=== PATIENT | female | born 1970 | race Caucasian/White ===

== ENCOUNTER 2024-02-18 01:23 | Day surgery (SDC) | payer OTHER, SELFPAY ==
[2024-02-11 13:14] VITALS: BMI 34.3
--- NOTE | 2024-02-11 13:21 | SUR.PREOP ---
Report to the Outpatient Waiting Room, entrance under the green pavilion located off [facility], at time 0915 on date 02/18/24 Planned Procedure Time: 1115.? Time changes happen often and if your time is changed the preop area will call you the afternoon before. - You and your visitor will be asked to self-screen and do not enter if you have any COVID symptoms. Please call surgeon if you need to reschedule. - A mask is optional within the hospital at this time. Patients may have clear liquids (water, carbonated beverages, clear teas, apple juice) until 3 hours prior to surgery with a maximum of 20 ounces. - No food from midnight until time of surgery and no smoking - Infants may have breast milk until 4 hours before surgery, formula 6 hours prior to surgery. - Children will be allowed to drink immediately following surgery.? If applicable, please bring a bottle or sippy cup to assist with drinking. Juice, water, soda, and popsicles are readily available.? For infants on formula, please bring formula the day of surgery.? Pacifiers are allowed. Take only the following medications with a SIP of water on the morning of surgery: ___gabapentin, nortriptyline,tizanidine DO NOT STOP ANY OF YOUR OTHER PRESCRIPTION MEDICATIONS PRIOR TO SURGERY EXCEPT THE FOLLOWING Medications to discontinue per physician aspirin and duloxetine for [address] molina, omeprazole and lisinopril day of surgery Date to take last dose___patient__ Please no make-up, nail citizen of [place], hairspray, perfume, deodorant, or body powder the day of surgery.? No jewelry (including any body piercings) or valuables the day of surgery, leave them at home.? Please take a shower or bath the night before, or the morning of, surgery with an antibacterial soap.? Wear comfortable, loose fitting clothing.? Children are encouraged to wear pajamas. - Jewelry must be removed prior to entering the operating room.? Rings and piercings that are not removed may be cut off. - The hospital will not accept responsibility for valuables.? - Please leave all valuables, including medications, at home the day of surgery. If you are going home after surgery, a licensed jinrikisha driver must drive you home.? - NO public transportation without another adult if you receive anesthesia. - We recommend that an adult stay with you for 24 hours following discharge. - We also recommend that you do not drive, make important decision, drink alcoholic beverages, or take any drugs that were not prescribed by your health care provider for at least 24 hours after your discharge time. For Pediatric surgeries, we recommend two adults accompany the child home. Follow any additional instructions given to you from your surgeon. Telephone instructions given to and asked if any additional questions and then verbalized understanding. Patient advised to call surgeon office or pre surgery nurse liaison [phone] if any additional questions.
--- NOTE | ~2024-02-18 | XR_ITS ---
XR fluoroscopy no charge Indication: Epidural spinal cord stimulator lead placement TECHNIQUE: Fluoroscopy used during Epidural spinal cord stimulator lead placement performed by [ Michael Martinez MD] on 02/18/2024. 3 minutes 53 seconds fluoroscopy with 3 fluoroscopic images captu red. FINDINGS: Correlate with procedure note. IMPRESSION: Fluoroscopy used during Epidural spinal cord stimulator lead placement. Reviewed, dictated and finalized at location B. IMPRESSION: Fluoroscopy used during Epidural spinal cord stimulator lead placem ent.
[2024-02-18 06:25] VITALS: BMI 35.8
--- NOTE | 2024-02-18 06:44 | PM.HPGS ---
History of Present Illness History of Present Illness Consent: Risks, benefits, and alternatives have been discussed and questions answered. Patient agrees to proceed with procedure. Chief complaint: chronic pain syndrome Narrative: Fariba Lester is a 53 year old female with chronic, recalcitrant and disabling bilateral lumbosacral low back and lower extremity pain secondary to lumbosacral radiculopathy and post laminectomy syndrome with failure to respond to aggressive conservative measures including PT, oral and topical analgesics, opioid and nonopioid analgesics, rest, time and activity/behavioral modification over the past 1-2 years or greater who presents for temporary placement of 2 Medtronic 8 contact percutaneous epidural stimulation leads under fluoroscopic guidance for spinal cord stimulation trial. Review of Systems Review of Systems: Patient denies any new infectious, allergic, cardiopulmonary, neurologic or constitutional symptoms or changes in activity tolerance or exercise capacity including new or progressive SOB/DOTSON, peripheral edema, productive cough, dysuria, nausea/vomiting, diarrhea, weight change, fevers/chills/night sweats, new or progressive neurologic deficit, cognitive or mood changes since last seen, except as documented in the HPI. All systems reviewed & are unremarkable except as noted in HPI and below PMFSH Social History Social History Years smoked: 30 Smoking status: Current every day smoker Tobacco type: cigarettes Alcohol intake: never Substance use type: marijuana Do You Feel Safe in your Home?: Yes Lack of Transportation: No Lack of Food: Never True Current Housing: I Have Housing Concerned About Future Housing: No Difficulty Paying Gas/Electric Bills: No Difficulty Paying for Meds: No Currently Unemployed: No Education: Associate Degree Difficulty w/ Childcare or Family Care: No Living arrangements: with family Meds Home Medications and Allergies Home Medications Medication Instructions Recorded Confirmed Type aspirin 81 mg tablet,delayed 81 mg PO DAILY 09/17/23 02/11/24 History release (Adult Low Dose Aspirin) atorvastatin 80 mg tablet 80 mg PO HS 09/17/23 02/11/24 History gabapentin 600 mg tablet 600 mg PO QID 09/17/23 02/11/24 History lisinopril 5 mg tablet 5 mg PO DAILY 09/17/23 02/11/24 History omeprazole 20 mg capsule,delayed 20 mg PO BID 09/17/23 02/11/24 History release tizanidine 4 mg tablet 4 mg PO TID 09/17/23 02/11/24 History nortriptyline 75 mg capsule 75 mg PO BID 10/30/23 02/11/24 History duloxetine 60 mg capsule,delayed 60 mg PO DAILY 12/11/23 02/11/24 History release hydroxyzine HCl 50 mg tablet 50 mg PO TID PRN Anxiety 02/18/24 02/18/24 History Allergies Allergy/AdvReac Type Severity Reaction Status Date / Time No Known Allergies Allergy Verified 02/18/24 06:20 Exam Narrative: The patient's physical exam is essentially unchanged from prior examination on 12/11/2023. Specifically, patient demonstrates normal lung capacity, tidal volume and respiratory rate without wheezes, crackles, rales or rubs. Heart rate and rhythm are regular without murmurs, gallops or rubs. No JVD. Pulses 2+ globally without increasing peripheral edema. AAOx3, NC/AT without acute distress or altered consciousness. Speech, cognition, mood and judgment at baseline and within normal limits. Const: General: cooperative, alert, awake and Physically active Orientation/consciousness: patient oriented x3 Limitations: no limitations Assessment and Plan Assessment and plan (1) Chronic pain associated with significant psychosocial dysfunction: Code(s): G89.4 - Chronic pain syndrome Status: Acute (2) Postlaminectomy syndrome: Code(s): M96.1 - Postlaminectomy syndrome, not elsewhere classified Status: Acute (3) Lumbosacral radiculopathy: Code(s): M54.
--- NOTE | 2024-02-18 06:48 | WPDHPUPDATE1 ---
History and Physical Update Update Date/Time: 02/18/24 06:48 History and Physical has been reviewed, including an updated exam of the patient. There are NO changes in the patient's condition. Risks, benefits, and alternatives have been discussed and questions answered. Patient agrees to proceed with procedure.
--- NOTE | 2024-02-18 06:50 | W.PM.PROC2 ---
Procedure Note - Detailed Date of Procedure 02/18/24 Pre-op Diagnosis chronic pain syndrome Post-op Diagnosis Same Procedure Performed Percutaneous Epidural Placement of Two Medtronic Spinal Cord Stimulation Leads under Fluoroscopic Guidance for Trial with Complex Intraoperative Programming (>1 Hour). Surgeon Michael Martinez MD Anesthesia Local Description of Procedure INFORMED CONSENT: Risks, benefits and alternatives to the procedure were discussed in detail with the patient who expressed explicit understanding and consent to proceed. Patient was informed verbally and in written form regarding the risks associated with the procedure including the low risk of serious infection, meningitis, dural puncture requiring treatment or surgical repair, headache, severe bleeding/bruising, allergic reaction, nerve or organ injury, paralysis, procedural site pain or discomfort, worsening pain and/or mobility, failure to treat and/or disfigurement. The patient expressed explicit understanding and consent to proceed. All materials required for the procedure were available prior to procedure start. Site and side were marked prior to procedure and confirmed in the presence of the patient. PROCEDURE IN DETAIL: The patient was brought to the procedural suite and placed in the prone position. Patient was made comfortable with use of pillows under the head/chest, hips and ankles. Skin overlying the injection site was wiped with alcohol and prepared broadly with 3 applications of a ChloraSept scrub. Patient draped in the usual sterile manner. Aseptic technique was employed throughout. The endplates of the vertebral body at the site of interest were aligned in the AP view. Slight caudal tilt angulation was utilized to optimize visualization of the targeted posterior intervertebral foramen. Local anesthesia was established by infiltration with approximately 5 mL of 1% lidocaine via a 1-1/2 inch 27-gauge needle. Deeper structures were anesthetized by infiltration of an additional 5 ml of 1% lidocaine via a 3.0 inch 22-gauge quincke spinal needle. A 16-gauge 4-inch curved epidural needle was advanced intermittently until appropriate loss of resistance to air was identified via plastic loss of resistance syringe at the T12-L1 level. Lateral view was used to confirm the appropriate positioning of the needle tip within the posterior epidural space. In the AP view, after negative aspiration for CSF, blood or other bodily fluid, a single 8-contact Medtronic epidural trial lead was advanced At midline until the distal electrode was even with the inferior endplate of the T7 vertebral body in the AP view. A second needle was placed, and lead advanced, in a similar manner with final lead position right of midline with distal electrode at the midportion of T8. Each lead was programmed, stimulated and repositioned until appropriate paresthesias were obtained in both the bilateral distribution at the T9-10 interspace and in a distribution coinciding with the majority of the patient's typical pain topography at any point on either lead. No unanticipated paresthesias were elicited with needle or lead placement. Lead stylettes and then needles were carefully removed under live fluoroscopy, completely intact and without difficulty, to ensure lack of lead migration. Patient's skin, leads and contacts were cleaned with alcohol. Externalized portions of the leads were affixed to the skin utilizing a stress-relieving loop, a StayFix Catheter bandage, spray adhesive (benzoin) , large Tegaderm and Medipore tape. Lot numbers for all implanted materials were documented in the patient's chart. Images were saved and documented in the patient chart. The patient tolerated the procedure well. The patient was transported to the recovery area in stable condition where they were observed for an appropriate amount of time prior to discharge, without evidence of complication. The patient will return within 5-10 days for
--- NOTE | 2024-02-18 06:57 | P.PNAN_ITS ---
Anes - Initial Pre Proc Eval Procedure: Operation Date: 02/18/24 07:30 Proposed Procedures p Temporary Placement of Two By Eight Contact Percutaneous Epidural Medtronic Spinal Cord Stimulator Leads under Fluoroscopic Guidance for Trial - Michael Martinez MD Date/Time: 02/18/24 06:57 Surgeon: Michael Martinez MD Pre Op Diagnosis: chronic pain syndrome Patient Data Age: 53 Gender: F Height: 1.5 m Weight: 77.11 kg Allergies Allergy/AdvReac Type Severity Reaction Status Date / Time No Known Allergies Allergy Verified 02/18/24 06:20 Home Medications Medication Instructions Recorded Confirmed Type aspirin 81 mg tablet,delayed 81 mg PO DAILY 09/17/23 02/11/24 History release (Adult Low Dose Aspirin) atorvastatin 80 mg tablet 80 mg PO HS 09/17/23 02/11/24 History gabapentin 600 mg tablet 600 mg PO QID 09/17/23 02/11/24 History lisinopril 5 mg tablet 5 mg PO DAILY 09/17/23 02/11/24 History omeprazole 20 mg capsule,delayed 20 mg PO BID 09/17/23 02/11/24 History release tizanidine 4 mg tablet 4 mg PO TID 09/17/23 02/11/24 History nortriptyline 75 mg capsule 75 mg PO BID 10/30/23 02/11/24 History duloxetine 60 mg capsule,delayed 60 mg PO DAILY 12/11/23 02/11/24 History release hydroxyzine HCl 50 mg tablet 50 mg PO TID PRN Anxiety 02/18/24 02/18/24 History Patient hx anesthesia problems: none Family hx anesthesia problems: none Results Review: All pre-operative results and documents have been reviewed as part of the pre- operative evaluation. [facility] Social History Social History Years smoked: 30 Smoking status: Current every day smoker Tobacco type: cigarettes Alcohol intake: never Substance use type: marijuana Do You Feel Safe in your Home?: Yes Lack of Transportation: No Lack of Food: Never True Current Housing: I Have Housing Concerned About Future Housing: No Difficulty Paying Gas/Electric Bills: No Difficulty Paying for Meds: No Currently Unemployed: No Education: Associate Degree Difficulty w/ Childcare or Family Care: No Living arrangements: with family Anes - Eval Final PreProcedure Day of Procedure 02/18/24 06:57 Patient weight: obese Heart: regular rate and rhythm Lungs: clear to auscultation Airway: Mallampati scale class II and special considerations (Missing L upper tooth/teeth. ) Neurological: alert and oriented Last oral intake: >/= 8 hours ASA classification: III Emergent: no Anesthetic plan: proceed Anesthesia type and monitoring: general GIVS and standard monitoring Results Review: All pre-operative results and documents have been reviewed as part of the pre- operative evaluation. HTN, hyperlipidemia, hx of CVA/TIA w some visual field deficits L sided. Pt smokes 4 cigs/day, smoked at 4 am today. Informed Consent: The patient's anesthetic plan and its attendant risks and benefits were discussed with the patient/family/POA. Questions were solicited and answers provided to the satisfaction of the patient/family/POA.
[2024-02-18 07:16] VITALS: BP 134/65; PULSE 84; RESP 16; TEMP 37.1; O2SAT 100
[2024-02-18] MEDS: ceFAZolin 2 GM/D5W 50 ML 2 GM/50 ML BAG IVPB (07:57)
[2024-02-18] MEDS: LIDOCAINE HCL 2% PF INJ 5 ML VIAL 10 ML INFILTRATE (08:22)
[2024-02-18] MEDS: BUPivacaine HCL 0.5% PF 30 ML VIAL 10 ML INFILTRATE (08:22)
[2024-02-18 08:54] VITALS: BP 114/64; PULSE 80; RESP 16; O2SAT 99
[2024-02-18] MEDS: LACTATED RINGERS 1,000 ML 30 ML IV CONT (08:54)
[2024-02-18 09:20] VITALS: BP 120/64; PULSE 82; RESP 16; O2SAT 100
[2024-02-18 09:45] VITALS: BP 118/60; PULSE 82; RESP 16
== END 2024-02-18 10:00 | disposition home or self-care (01) ==
PROVIDERS: PCP Nurse Practitioner Family; Visit Provider Anesthesiology Pain Medicine
PROC: (CPT 63650; principal; 2024-02-18 07:30)
DX: M96.1 Postlaminectomy syndrome, not elsewhere classified (principal); G89.4 Chronic pain syndrome; F17.210 Nicotine dependence, cigarettes, uncomplicated; F12.90 Cannabis use, unspecified, uncomplicated; Z79.82 Long term (current) use of aspirin; E66.9 Obesity, unspecified; Z68.35 Body mass index [BMI] 35.0-35.9, adult
CPT/HCPCS: 63650; 99199; C1778; J0690; J1100; J2003; J2250; J2405; J2704; J3010; J7120; Q9965

== ENCOUNTER 2024-03-24 10:16 | Outpatient (CLI) | payer OTHER, SELFPAY ==
--- NOTE | ~2024-03-24 | XR_ITS ---
EXAMINATION: XR chest 2V Exam Date/Time: 03/24/2024 11:45 [facility] OFFICIAL HISTORY: Z01.818 preprocedural examination, h/o smoker, HTN, stroke Comparison: None. RESULT: Lines, tubes, and devices: None. Lungs and pleura: Clear. Cardiomediastinal silhouette: Unremarkable. Other: No acute osseous or upper abdominal finding. IMPRESSION: No acute cardiopulmonary process. Reviewed, dictated and finalized at location K. [facility] OFFICIAL
--- NOTE | 2024-03-24 11:12 | ECG_ITS ---
Test Date: 2024-03-24 11:27:21 Measurements Intervals [place] Rate: 95 P: 62 [place]: 155 QRS: 61 QRSD: 87 T: 46 QT: 330 QTc: 417 Interpretive Statements SINUS RHYTHM BASELINE ARTIFACT- I, II, III, AVR, AVL, AVF, V1-V2, V4-V6 NORMAL ECG No previous ECG available for comparison Electronically Signed On 03-24-2024 12:08:52 [employer] by Taran Mayfield D.O.
[2024-03-24 11:53] LABS: Hematocrit 49.4 % (37.0-47.0); Hemoglobin 16.4 g/dL (12.0-15.0); Mean Corpuscular HGB Conc 33.2 g/dl (32-36); Mean Corpuscular Hemoglobin 30.4 pg (26-34); Mean Corpuscular Volume 91.7 fl (80-100); Mean Platelet Volume 10.5 fl (7.4-10.4); Platelet Count Result 339 k/mm3 (150-375); Red Blood Count 5.39 M/mm3 (4.2-5.4); Red Cell Distribution Width 13.2 % (11.5-14.5); White Blood Count 8.9 K/mm3 (4.5-10.0)
[2024-03-24 12:13] LABS: Alanine Aminotransferase 22 U/L (6-35); Albumin Level 4.5 g/dL (3.5-5.1); Alkaline Phosphatase 134 U/L (38-126); Anion Gap 6 mmol/L (4-12); Aspartate Amino Transferase 21 U/L (14-36); Bilirubin,Total 0.5 mg/dL (0.2-1.3); Blood Urea Nitrogen 17 mg/dL (7-17); Calcium 9.4 mg/dL (8.4-10.2); Carbon Dioxide 29 mmol/L (22-30); Chloride 103 mmol/L (98-107); Estimated Glomerular Filt Rate > 60; Glucose 88 mg/dL (65-110); Potassium 3.8 mmol/L (3.4-5.0); Sodium 138 mmol/L (137-145)
[2024-03-24 12:17] LABS: INR 0.9; Prothrombin Time 12.6 Seconds (11.1-14.7)
[2024-03-24 12:18] LABS: Partial Thromboplastin Time 25.5 Seconds (22.3-36.8)
[2024-03-24 12:31] LABS: Hemoglobin A1C 5.5 % (<5.7)
[2024-03-24 13:40] LABS: MRSA (PCR) NOT DETECTED (NOT DETECTE)
== END 2024-03-24 10:17 | disposition home or self-care (01) ==
LOC: ANHLAB 10:18
PROVIDERS: PCP Nurse Practitioner Family; Visit Provider Anesthesiology Pain Medicine
DX: Z01.818 Encounter for other preprocedural examination (principal); I10 Essential (primary) hypertension; Z86.73 Personal history of transient ischemic attack (TIA), and cerebral infarction without residual deficits; Z87.891 Personal history of nicotine dependence
CPT/HCPCS: 36415; 71046; 80053; 83036; 85027; 85610; 85730; 87641; 93005

== ENCOUNTER 2024-03-25 08:52 | Day surgery (SDC) | payer OTHER, SELFPAY ==
[2024-03-14 13:28] VITALS: BMI 34.2
[2024-03-25] VITALS (9 sets, daily range): BP systolic 86–137; BP diastolic 60–86; PULSE 87–102; RESP 12–26; TEMP 36.3–36.4; O2SAT 94–100
--- NOTE | ~2024-03-25 | XR_ITS ---
EXAMINATION: XR fluoroscopy no charge DATE: 03/25/2024 10:40 [facility] [employer] INDICATION: IMPL PERMANENT 2X8 CONTACT PERC EPIDURAL STIMULATION LEADS . TECHNIQUE: 4 fluoroscopic images 16 cine clips of the lumbar spine were obtained during implantation of permanent 2 x 8 contact percutaneous epidural stimulator, performed by Michael Martinez MD. I was not present during the procedure. Fluoroscopy exposure time was 113.0 seconds. Air Kerma 34.06 mGy. COMPARISON: None FINDINGS/IMPRESSION: Fluoroscopic documentation of implantation of permanent 2 x 8 contact percutaneous epidural stimulato r. Please refer to the operative note for complete procedural details . Reviewed, dictated and finalized at location [facility]. [employer]CH[employer]OLOG[employer]
--- NOTE | 2024-03-25 05:45 | WPDHPUPDATE1 ---
History and Physical Update Update Date/Time: 03/25/24 05:45 History and Physical has been reviewed, including an updated exam of the patient. There are NO changes in the patient's condition. Risks, benefits, and alternatives have been discussed and questions answered. Patient agrees to proceed with procedure.
--- NOTE | 2024-03-25 06:07 | W.PM.PROC2 ---
Procedure Note - Detailed Date of Procedure 03/25/24 Pre-op Diagnosis Post-Laminectomy Syndrome, lumbosacral radiculopathy, chronic pain syndrome Post-op Diagnosis Same Procedure Performed Percutaneous implantation of two x 8-contact Medtronic tunneled, epidural neurostimulation lead(s) and rechargeable, programmable, MRI-safe implantable Intellis pulse generator for permanent spinal cord stimulation under fluoroscopic guidance. Surgeon Michael Martinez MD Analyst Sales None. Anesthesia General ([General endotracheal anesthesia] in the [prone] position with infiltration of local anesthetic.) Description of Procedure INFORMED CONSENT, EDUCATION AND PREPARATION: Procedure was discussed in detail with the patient at a previous visit and at the time of surgery. The risks, benefits, and alternatives to the procedure, including doing nothing, were discussed in detail with the patient, who expressed explicit understanding and consent to proceed. Specific risks discussed with the patient included, but were not limited to the risk of serious local or systemic infection, major or minor bleeding/bruising, allergic reaction to medications or materials, inadvertent lung or other organ injury, inadvertent nerve or spinal cord injury resulting in increased pain, weakness, numbness or loss of bowel or bladder control, device malfunction and/or inability to treat pain, device migration or malfunction resulting in the need for repeat or additional surgery, inadvertent dural puncture resulting in acute or chronic CSF leak and post-dural puncture headache, eye or dental injury, joint, nerve, spine or soft tissue injury/pain related to positioning, heart attack, DVT/PE, hemorrhagic or ischemic stroke, seizure, coma and . Patient understands these risks and agrees that the opportunity for benefit outweighs the potential risk of harm. Informed Consent form was read, reviewed and signed by the patient, physician and witnessed by staff. All pertinent questions were asked and answered to the patient's satisfaction. Patient indicates completion of a home 4% CHG shower last PM and this AM. Surgical site was pre-treated with chlorhexidine wipes and antibiotics initiated in holding. All materials required for implantation were available and site and side of implant were marked prior to procedure start. Appropriate time out was conducted prior to incision. PROCEDURE IN DETAIL: Patient was brought to the operative suite and placed in the supine position. ASA standard monitors were attached and utilized throughout. General endotracheal anesthesia was initiated without difficulty. Eyes were protected. Patient was converted to the prone position. Joints were in neutral position and pressure points were padded. Breasts and/or genitals were evaluated and protected as appropriate. Skin overlying the target incision sites was identified and marked with sterile marker. Surgical site was widely prepared with 10ml tinted ChloraPrep applicator and allowed to dry completely for at least 3 minutes. Patient was draped in a typical sterile fashion prior to procedure start. Aseptic technique was utilized throughout. The T12-L1 interspace was identified in the AP view. Skin and subcutaneous tissues at and underlying the targeted incision site was marked with sterile skin marker and infiltrated with approximately 10 mL of a 1:1 admixture of 0.5% preservative-free bupivacaine with epinephrine and 2% preservative-free lidocaine with epinephrine via a 27-gauge needle after negative aspiration. Anesthesia was extended to the periosteum of the right L1 lamina using a 3.5 inch 22-gauge Quincke spinal needle, without difficulty and after negative aspiration. A 4 cm incision was made right of midline at the intended lead introduction site. Incision was dissected to thoracolumbar fascia using a combination of electrocautery and blunt dissection. Hemostasis was obtained with electrocautery and confirmed. A 14-gauge 4-inch curved Tuohy epidural needle was advanced under intermittent fluoroscopy until appropriate loss of resistance to air was obtained via plastic loss of resistance syringe. Lateral view showed appropriate placement of the needle tip within the posterior epidural space. In the AP view, a second needle was placed in a similar fashion with similar results and no evidence of complication. An 8-contact Medtronic spinal cord stimulation lead was then advanced through the most cephalad needle at and left of midline (tulip configuration) until the most proximal electrode was adjacent to the superior endplate of the T8 vertebral body. A second electrode was placed in a similar fashion at and right of midline until the most proximal electrode was adjacent to the midportion of the T8 vertebral body. Lateral view was utilized to document positioning of the leads within the posterior epidural space. Two x 0 Ethibond sutures were placed just adjacent the previously placed needles and secured to thoracolumbar fascia. Lead guidewires and then surrounding introducer needles were withdrawn over the leads under live fluoroscopy to ensure absence of lead migration. No CSF or bleeding was noted emanating from the lead entry sites. Deployable bumpy friction anchors were then placed, one per lead, such that the proximal portion of the anchor was buried within fascia. These were then secured to thoracolumbar fascia using the previously placed 0 Ethibond sutures. Attention was then turned to creation of the generator pocket in the right upper buttock. After infiltration with an additional 10 mL of the above local anesthetic admixture via a 27-gauge needle following negative aspiration, a 4 cm horizontal incision was made in the right upper buttock. An appropriately sized pocket was then created approximately 1-2 cm from the skin surface with a combination of electrocautery and blunt dissection. Hemostasis was obtained with electrocautery and confirmed. Two x 0 Ethibond sutures were placed within the superior portion of the pocket, one at the 10 o'clock and one at the 12 o'clock position. Using the microsoft exchange architect- supplied tunneling device, the two previously placed leads were tunneled from the inferior pole of the midline thoracolumbar incision to the superolateral portion of the newly created pocket. Stress relieving loops were retained at the lead insertion sites. Distal contacts on each lead were then cleaned with alcohol-soaked sterile gauze and placed into the generator contact ports so that the leftmost and most cephalad lead was placed within the superior 0-7 port position and the rightmost lead was placed within the inferior 8-15 port position. Each contact was carefully secured using the microsoft exchange architect-supplied ratchet device. Appropriate and secure connectivity was confirmed. Excess lead was coiled behind the generator and the generator was placed in the pocket such that the lead contact ports were in the cephalad position and the microsoft exchange architect's logo was facing externally. The device was secured to gluteal fascia using previously placed 0 Ethibond sutures. Each incision site was then copiously irrigated with IrriCept 0.5% Chlorhexidine solution. Hemostasis was again confirmed. 500mg of powdered vancomycin was placed within the surgical wounds, proportionately divided between each surgical site. Each incision was then closed in a layered fashion using interrupted 2-0 antimicrobial vicryl sutures for the deeper layers, continuous 4-0 antimicrobial monocryl for the superficial layers and wound glue to seal the epidermis. Once wound glue had dried, wounds were covered with Telfa and Tegaderm dressing. Patient was transitioned to the supine position and general anesthesia was reversed without difficulty. Patient was then transported to the recovery area in a stable condition with no evidence of complication. The patient was instructed to avoid heavy or repetitive lifting, bending at the waist, lifting and twisting, reaching or overhead work for the next 4-6 weeks. Patient and available family members/caregivers were instructed verbally regarding appropriate postoperative activity restrictions and wound care, both in the immediate preoperative period and in the postoperative period. Instructions were both reviewed with and provided to the patient in written form prior to discharge. Patient to remain in the present of a responsible adult for at least 48 hours. Patient, amongst other requirements, was instructed to avoid driving or soaking/submerging incisions until released and to monitor for signs of infection including fevers, chills, night sweats, any redness, warmth or discharge around the incision sites, increased pain, opening/bleeding of the wound, new pain, weakness, or numbness in the neck, back or upper and lower extremities, loss of bowel or bladder control, confusion or headaches that are persistent, severe or new. Patient expressed understanding prior to leaving the hospital. Signs and symptoms of infection, epidural abscess or hematoma, intracranial hypotension and post-dural puncture headache were described to the patient who was instructed to call if these symptoms present, and in the case of spinal headache to remain recumbent when possible, hydrate as tolerated based on medical conditions to the point of passing clear or mostly clear urine every 2-3 hours, caffeinated beverages and [id number] analgesics as able and tolerated. Patient will monitor for all signs/symptoms and call our office immediately should they occur or report directly to the nearest Emergency Department if after hours or no immediate response. Immediate follow up was planned by telephone in 2-3 days and in person in 7-10 days. COMMENTS: None. COMPLICATIONS: None. SPECIMENS: None. ESTIMATED BLOOD LOSS: 10 mL. IV FLUIDS: On Chart. DRAINS: None. Packing No Pathology None sent Complications No immediate complications Condition Stable Disposition PACU [facility] Billing Surgery - Charge Forward: Surgery Billing
--- NOTE | 2024-03-25 06:54 | P.PNAN_ITS ---
Anes - Initial Pre Proc Eval Procedure: Operation Date: 03/25/24 11:00 Proposed Procedures p Implant Permanent 2 x 8 Contact Percutaneous Epidural Stimulation Leads and Inceptiv Device MRI Safe Rechargeable Programmable Pulse Generator under Fluoroscopic Guidance with Contrast Control - Michael Martinez MD Date/Time: 03/25/24 06:54 Surgeon: Michael Martinez MD Pre Op Diagnosis: Post-Laminectomy Syndrome Patient Data Age: 53 Gender: F Height: 1.5 m Weight: 77 kg Allergies Allergy/AdvReac Type Severity Reaction Status Date / Time No Known Allergies Allergy Verified 03/14/24 13:25 Home Medications Medication Instructions Recorded Confirmed Type aspirin 81 mg tablet,delayed 81 mg PO DAILY 09/17/23 03/14/24 History release (Adult Low Dose Aspirin) atorvastatin 80 mg tablet 80 mg PO HS 09/17/23 03/14/24 History lisinopril 5 mg tablet 5 mg PO DAILY 09/17/23 03/14/24 History omeprazole 20 mg capsule,delayed 20 mg PO BID 09/17/23 02/11/24 History release tizanidine 4 mg tablet 4 mg PO TID 09/17/23 02/11/24 History nortriptyline 75 mg capsule 75 mg PO BID 10/30/23 02/11/24 History duloxetine 60 mg capsule,delayed 60 mg PO DAILY 12/11/23 03/14/24 History release hydroxyzine HCl 50 mg tablet 50 mg PO TID PRN Anxiety 02/18/24 03/14/24 History gabapentin 800 mg tablet 800 mg PO QID 02/26/24 03/14/24 History hydrocodone 10 mg-acetaminophen 1 tablet PO Q6H PRN Pain (Scale 02/26/24 03/14/24 History 325 mg tablet Score 4-6) Patient hx anesthesia problems: none Family hx anesthesia problems: none Results Review: All pre-operative results and documents have been reviewed as part of the pre- operative evaluation. [facility] Past Medical History Medical History (Updated 03/25/24 @ 06:55 by Cole Valdez DO) Chronic pain associated with significant psychosocial dysfunction Chronic, continuous use of opioids HTN (hypertension) Hyperlipidemia SLE (systemic lupus erythematosus related syndrome) Stroke Social History Social History Years smoked: 30 Smoking status: Current every day smoker Tobacco type: cigarettes Second hand tobacco smoke exposure: Yes Alcohol intake: never Substance use: unknown Substance use type: marijuana Do You Feel Safe in your Home?: Yes Lack of Transportation: No Lack of Food: Never True Current Housing: I Have Housing Concerned About Future Housing: No Difficulty Paying Gas/Electric Bills: No Difficulty Paying for Meds: No Currently Unemployed: No Education: Associate Degree Difficulty w/ Childcare or Family Care: No Living arrangements: with family Spiritual care concerns: No Anes - Eval Final PreProcedure Day of Procedure 03/25/24 06:54 Patient weight: obese Heart: regular rate and rhythm Lungs: clear to auscultation Airway: Mallampati scale class II and special considerations poor dentition Neurological: alert and oriented Last oral intake: >/= 8 hours ASA classification: III Emergent: no Anesthetic plan: proceed Anesthesia type and monitoring: general ETT and standard monitoring Results Review: All pre-operative results and documents have been reviewed as part of the pre- operative evaluation. Informed Consent: The patient's anesthetic plan and its attendant risks and benefits were discussed with the patient/family/POA. Questions were solicited and answers provided to the satisfaction of the patient/family/POA.
[2024-03-25] MEDS: LACTATED RINGERS 1,000 ML 30 ML IV CONT ×2 (09:29→13:01)
[2024-03-25] MEDS: ceFAZolin 2 GM/D5W 50 ML 2 GM/50 ML BAG IVPB (10:43)
[2024-03-25] MEDS: LIDOCAINE HCL 1% PF INJ 5 ML VIAL 10 ML XX (11:06)
[2024-03-25] MEDS: BUPivacaine HCL 0.5% 10 ML AMP INFILTRATE (11:06)
[2024-03-25] MEDS: VANCOMYCIN HCL 1,000 MG VIAL 1000 MG TOPICAL (11:45)
[2024-03-25] MEDS: IRRISEPT 450 ML IRRIGATION BOTTLE IRRIGATION (11:59)
[2024-03-25] MEDS: fentaNYL CITRATE INJ (*CRX) 100 MCG/2 ML VIAL 25 MCG IV PUSH ×7 (12:37→13:17)
--- NOTE | 2024-03-25 13:28 | WPDANESPN ---
Anes - Prog Note Post-Op Date/Time: 03/25/24 13:28 Cardiovascular status: normal Respiratory status: normal Airway patency: baseline Mental status: baseline Post-Op hydration status: normal Vital Signs: Last Vital Signs Temp 36.4 C L 03/25/24 12:24 Pulse 101 H 03/25/24 13:24 Resp 18 03/25/24 13:24 BP 117/86 03/25/24 13:24 Pulse Ox 96 03/25/24 13:24 O2 Del Method Room Air 03/25/24 13:24 O2 Flow Rate 2 03/25/24 13:09 Pain Score (VAS): 4 I/O: Intake & Output 03/24/24 03/25/24 03/25/24 23:59 07:59 15:59 Intake Total 200 Balance 200 Post-procedural complaints: none Patient Feedback: Patient satisfied with anesthetic care. Other Findings: Patient vital signs back to baseline. Patient denies nausea and vomiting. Patient's pain under control. Patient OK for discharge.
[2024-03-25] MEDS: oxyCODONE HCL (*CRX) 5 MG TAB IR PO (13:45)
== END 2024-03-25 14:19 | disposition home or self-care (01) ==
PROVIDERS: PCP Nurse Practitioner Family; Visit Provider Anesthesiology Pain Medicine
PROC: (CPT 63685; principal; 2024-03-25 10:30)
DX: M96.1 Postlaminectomy syndrome, not elsewhere classified (principal); M54.16 Radiculopathy, lumbar region; G89.4 Chronic pain syndrome
CPT/HCPCS: 63685; 63650 ×2; 99199

== ENCOUNTER 2024-03-26 13:55 | Observation (INO) | payer OTHER, SELFPAY ==
--- NOTE | ~2024-03-26 | XR_ITS ---
XR chest 1V portable Ordering provider: Viraj Adorno MD History: 53 years Female with . HEADACHE/TENS UNIT PLACED YESTERDAY . Comparison: None. FINDINGS: MEDIASTINUM: The cardiac silhouette is not enlarged. LUNGS: No infiltrates, effusions or pneumothorax. Prominent bronchovascular markings in the lower lob es. Early atelectasis versus pneumonia is not excluded Follow-up advised. OTHER: No free air under the diaphragm. Pacemaker with the tip in the midthoracic area. Degenerative the spine. IMPRESSION: Bilateral basal prominent markings which may indicate atelectasis versus early pneumonia. Follow-up a dvised. Reviewed, dictated and finalized at location A. ATION AND TRAINING MANAGER IMPRESSION: Bilateral basal prominent markings which may indicate atelectasis versus early pneumonia. Follow-up advised.
--- NOTE | ~2024-03-26 | CT_ITS ---
CT abdomen pelvis w con Ordering provider: Viraj Adorno MD History: 53 years Female with . pod 1 Epidural neurostim placement/fevers . Comparison: None. Technique: CT abdomen and pelvis with IV and without oral contrast. Automated exposure control and it erative reconstruction technique were employed. The dose-length product was 946.08 mGy-cm. 100 mL Omn ipaque 350 was given IV. Findings: VISUALIZED LOWER CHEST: Normal. UPPER ABDOMINAL ORGANS: Liver: Dilated intrahepatic bile ducts. Otherwise, normal. Gallbladder: Calcific area seen in the neck of the gallbladder near to the cystic duct. Spleen: Normal. Stomach/duodenum: Normal. Pancreas: Normal. Slightly prominent pancreatic duct. Adrenals: Normal. Kidneys: Hypodensity is seen in the left kidney lower pole which measures 1 cm. Follow-up advised. PELVIC ORGANS: The bladder is underfilled with thickened wall. BOWEL AND MESENTERY: Colon: No evidence of diverticulitis. Appendix is not demonstrated. Small Bowel: Normal. No obstruction. Peritoneum/mesentery: No free air or free fluid. No mesenteric lymphadenopathy. RETROPERITONEUM: Mild atheromatous disease of the abdominal aorta. No retroperitoneal lymphadenopat hy. MUSCULOSKELETAL: Superficial soft tissues: The superficial soft tissues are normal. Bones: Age appropriate degenerative changes of the spine. Postoperative changes in the lower lumbar a tucker. Spinal stimulator is seen in the upper lumbar and lower thoracic area. Pubic symphysitis. IMPRESSION: 1. Stone in the cystic duct. 2. Intrahepatic biliary dilatation. Evaluation of the sphincter of Oddi area is advised. 3. Slightly prominent pancreatic duct. 4. Hypodensity in the left kidney lower pole which may be inflammatory. Follow-up advised to exclude early mass formation. Reviewed, dictated and finalized at location A. ITAL AIDE IMPRESSION: 1. Stone in the cystic duct. 2. Intrahepatic biliary dilatation. Evaluation of the sphincter of Oddi area i s advised. 3. Slightly prominent pancreatic duct. 4. Hypodensity in the left kidney lower pole which may be inflammatory. Follow -up advised to exclude early mass formation.
[2024-03-26 13:58] VITALS: BP 115/61; PULSE 103; RESP 16; TEMP 36.9; O2SAT 97
[2024-03-26 14:20] VITALS: TEMP 37.1; O2SAT 100
[2024-03-26] MEDS: HYDROmorphone HCL INJ (*CRX) 1 MG/ML SYR IV PUSH (15:30)
[2024-03-26 15:54] LABS: Basophils Absolute Auto 0.1 K/mm3 (0.0-0.1); Basophils Percent Auto 0.4 % (0.2-1.2); Eosinophils Absolute Auto 0.1 K/mm3 (0-0.3); Hematocrit 40.4 % (37.0-47.0); Hemoglobin 13.6 g/dL (12.0-15.0); Immature Granulocyte Absolute 0.02 K/mm3 (0.00-0.031); Immature Granulocyte Percent A 0.2 % (0-0.5); Lymphocytes Absolute Auto 4.56 K/mm3 (0.9-3.2); Lymphocytes Percent Auto 39.5 % (18.3-44.2); Mean Corpuscular HGB Conc 33.7 g/dl (32-36); Mean Corpuscular Hemoglobin 30.8 pg (26-34); Mean Corpuscular Volume 91.4 fl (80-100); Mean Platelet Volume 10.6 fl (7.4-10.4); Monocytes Absolute Auto 0.9 K/mm3 (0.1-0.6); Monocytes Percent Auto 7.5 % (2.6-8.5); Neutrophils Absolute Auto 5.9 K/mm3 (1.3-6.7); Neutrophils Percent Auto 51.4 % (45.5-73.1); Platelet Count Result 267 k/mm3 (150-375); Red Blood Count 4.42 M/mm3 (4.2-5.4); Red Cell Distribution Width 13.2 % (11.5-14.5); White Blood Count 11.6 K/mm3 (4.5-10.0)
[2024-03-26 16:06] LABS: Alanine Aminotransferase 22 U/L (6-35); Albumin Level 3.7 g/dL (3.5-5.1); Alkaline Phosphatase 125 U/L (38-126); Anion Gap 5 mmol/L (4-12); Aspartate Amino Transferase 24 U/L (14-36); Bilirubin,Total 0.4 mg/dL (0.2-1.3); Blood Urea Nitrogen 9 mg/dL (7-17); Calcium 8.4 mg/dL (8.4-10.2); Carbon Dioxide 26 mmol/L (22-30); Chloride 106 mmol/L (98-107); Estimated CRCL calculation 75 ml/min; Estimated Glomerular Filt Rate > 60; Glucose 112 mg/dL (65-110); Potassium 3.5 mmol/L (3.4-5.0); Sodium 137 mmol/L (137-145)
[2024-03-26 17:02] LABS: Influenza A QL RT-PCR Negative (Negative); Influenza B QL RT-PCR Negative (Negative); RSV RNA, RT-PCR Negative (Negative); SARS-CoV-2 RNA PCR Negative (Negative)
[2024-03-26 17:55] VITALS: BP 102/62; PULSE 94; RESP 20; TEMP 36.7; O2SAT 96
--- NOTE | 2024-03-26 18:32 | ED_ITS ---
HPI - General Adult General Chief complaint: Skin/Abscess/Foreign Body Stated complaint: post op complication Time Seen by Provider: 03/26/24 14:24 History of Present Illness HPI narrative: This is a 53-year-old female presenting on pod 1 from a epidural nerve stimulator inserted by Dr. Michael Martinez. Patient says that since the surgery she has been having pain in her back which is chronic as well as a headache. She also reports he fevers as high as 101 at home. She is denying nausea vomiting, neck pain, chest pain difficulty breathing or abdominal pain or urinary symptoms. Related Data Home Medications Medication Instructions Recorded Confirmed aspirin 81 mg tablet,delayed 81 mg PO DAILY 09/17/23 03/26/24 release (Adult Low Dose Aspirin) atorvastatin 80 mg tablet 80 mg PO HS 09/17/23 03/26/24 lisinopril 5 mg tablet 5 mg PO DAILY 09/17/23 03/26/24 omeprazole 20 mg capsule,delayed 20 mg PO BID 09/17/23 03/26/24 release tizanidine 4 mg tablet 4 mg PO TID 09/17/23 03/26/24 nortriptyline 75 mg capsule 75 mg PO BID 10/30/23 03/26/24 duloxetine 60 mg capsule,delayed 60 mg PO DAILY 12/11/23 03/26/24 release hydroxyzine HCl 50 mg tablet 50 mg PO TID PRN Anxiety 02/18/24 03/26/24 gabapentin 800 mg tablet 800 mg PO QID 02/26/24 03/26/24 hydrocodone 10 mg-acetaminophen 1 tablet PO Q6H PRN Pain (Scale 03/26/24 03/26/24 325 mg tablet Score 4-6) Allergies Allergy/AdvReac Type Severity Reaction Status Date / Time No Known Allergies Allergy Verified 03/14/24 13:25 [facility] Past Medical History Medical History Chronic pain associated with significant psychosocial dysfunction Chronic, continuous use of opioids HTN (hypertension) Hyperlipidemia SLE (systemic lupus erythematosus related syndrome) Stroke Family History Family History (Updated 03/26/24 @ 21:52 by Ashlyn Dhillon RN) Father Acute myocardial infarction Leukemia Congestive heart failure Diabetes mellitus Grandparent Acute myocardial infarction Mother Congestive heart failure Cerebrovascular accident Social History Social History Smoking packs per day: 0.15 Smoking cigarettes per day: 3.0 Years smoked: 30 Smoking pack-years: 4.50 Smoking status: Current some day smoker Tobacco type: cigarettes Second hand tobacco smoke exposure: Yes Alcohol intake: never Substance use: unknown Substance use type: marijuana Do You Feel Safe in your Home?: Yes Lack of Transportation: No Lack of Food: Never True Current Housing: I Have Housing Concerned About Future Housing: No Difficulty Paying Gas/Electric Bills: No Difficulty Paying for Meds: No Currently Unemployed: No Education: High School Diploma/GED Difficulty w/ Childcare or Family Care: No Living arrangements: with family Spiritual care concerns: No Exam Narrative: APPEARANCE: patient is laying in bed, she is having sporadic jerks of her entire body which she says are chronic. Head: atraumatic. EYES: EOMI, NOSE: Atraumatic NECK: Trachea midline, supple, no meningismus RESPIRATORY: No increased rate of breathing , clear to auscultation CARDIOVASCULAR: RRR, no peripheral edema ABDOMINAL: Non-distended, soft nontender no guarding rebound MUSCULOSKELETAl: No obvious deformities NEURO: Alert. Moving 4/4 extremities SKIN:: inches incision sites over the lower back are clean and dry with no cellulitic changes or areas of fluctuance. PSYCHIATRIC: Normal affect Course Vital Signs Vital signs: Vital Signs Temperature 98.5 F 03/26/24 13:58 Pulse Rate 103 H 03/26/24 13:58 Respiratory Rate 16 03/26/24 13:58 Blood Pressure 115/61 03/26/24 13:58 Pulse Oximetry 97 03/26/24 13:58 Oxygen Delivery Room Air 03/26/24 13:58 Temperature 98.4 F 03/26/24 21:47 Pulse Rate 86 03/26/24 21:47 Respiratory Rate 18 03/26/24 21:47 Blood Pressure 130/62 03/26/24 21:47 Pulse Oximetry 94 03/26/24 21:47 Oxygen Delivery Room Air 03/26/24 14:20 Medical Decision Making MDM Narrative Medical decision making narrative: -Course: 53-year-old female presenting on pod 1 from a epidural nerve stimulator. Patient is complaining of pain in her lower back and a headache. She is also reporting fevers as high as 101 at home orally. She is not febrile at this time the emergency department. sepsis workup ordered to evaluate for a cause of the patient's fever. Chest x-ray showed bilateral basilar markings that could be atelectasis versus early pneumonia. CT abdomen pelvis showed large stone in the cystic duct as well as as well as intrahepatic biliary dilation and a prominent pancreatic duct. Radiologist recommended evaluation the sphincter of Oddi. urine with 6-10 white blood cells and +1 leuk esterase. case was discussed with her surgeon Dr. Michael Martinez. Possible complications of surgery include meningitis, epidural abscess and surgical site infections although none of those seem to fit her current clinical picture. It's also possible that she carried infection into the surgery or possibly developed pneumonia for intubation. Patient will be started on antibiotics to cover multiple sources of infection. She will be placed in observation for further workup of her fever. -DDX includes but is not limited to: Pneumonia, UTI, postop infection , sepsis, viral syndrome -Co-morbidities complicating care: Chronic pain, recent epidural nerve stimulator placement -External Chart Review: review of operative notes -Independent interpretation of studies: labs and imaging reviewed. White count 11.6. -Interventions: Pip/tazo, Doxy. Dilaudid 1 mg -Shared decision making / Disposition: observation Vital Signs Vital Signs: Vital Signs Temperature 98.5 F 03/26/24 13:58 Pulse Rate 103 H 03/26/24 13:58 Respiratory Rate 16 03/26/24 13:58 Blood Pressure 115/61 03/26/24 13:58 Pulse Oximetry 97 03/26/24 13:58 Oxygen Delivery Room Air 03/26/24 13:58 Temperature 98.4 F 03/26/24 21:47 Pulse Rate 86 03/26/24 21:47 Respiratory Rate 18 03/26/24 21:47 Blood Pressure 130/62 03/26/24 21:47 Pulse Oximetry 94 03/26/24 21:47 Oxygen Delivery Room Air 03/26/24 14:20 Lab Data 03/26/24 15:39 03/26/24 15:39 Labs: Lab Results 03/26/24 03/26/24 Range/Units 15:39 18:39 WBC 11.6 H (4.5-10.0) K/mm3 RBC 4.42 (4.2-5.4) M/mm3 Hgb 13.6 (12.0-15.0) g/dL Hct 40.4 (37.0-47.0) % MCV 91.4 (80-100) fl MCH 30.8 (26-34) pg MCHC 33.7 (32-36) g/dl RDW 13.2 (11.5-14.5) % Plt Count 267 (150-375) k/mm3 MPV 10.6 H (7.4-10.4) fl Immature Gran % (Auto) 0.2 (0-0.5) % Neut % (Auto) 51.4 (45.5-73.1) % Lymph % (Auto) 39.5 (18.3-44.2) % Henry % (Auto) 7.5 (2.6-8.5) % Eos % (Auto) 1.0 (0-4.4) % Baso % (Auto) 0.4 (0.2-1.2) % Lymph # (Auto) 4.56 H (0.9-3.2) K/mm3 Henry # (Auto) 0.9 H (0.1-0.6) K/mm3 Eos # (Auto) 0.1 (0-0.3) K/mm3 Baso # (Auto) 0.1 (0.0-0.1) K/mm3 Abs Immat Gran (auto) 0.02 (0.00-0.031) K/mm3 Absolute Neuts (auto) 5.9 (1.3-6.7) K/mm3 Absolute Nucleated RBC 0.000 (0.0-0.012) K/mm3 Nucleated RBC % 0.0 (0.0-0.2) % Sodium 137 (137-145) mmol/L Potassium 3.5 (3.4-5.0) mmol/L Chloride 106 (98-107) mmol/L Carbon Dioxide 26 (22-30) mmol/L Anion Gap 5 (4-12) mmol/L BUN 9 D (7-17) mg/dL Creatinine 0.70 (0.7-1.0) mg/dL Estim Creat Clear Calc 75 ml/min Estimated GFR > 60 (59 - ) Glucose 112 H (65-110) mg/dL Calcium 8.4 (8.4-10.2) mg/dL Total Bilirubin 0.4 (0.2-1.3) mg/dL AST 24 (14-36) U/L ALT 22 (6-35) U/L Alkaline Phosphatase 125 (38-126) U/L Total Protein 6.0 L (6.3-8.2) g/dL Albumin 3.7 (3.5-5.1) g/dL Urine Color Yellow (Yellow) Urine Appearance Cloudy H (Clear) Urine pH 5.5 (5.0-9.0) Ur Specific Moody 1.023 (1.001-1.035) Urine Protein Trace (Negative) mg/dL Urine Glucose (UA) Negative (Negative) mg/dL Urine Ketones Trace H (Negative) mg/dL Ur Blood (Man) Negative (Negative) Urine Nitrate Negative (Negative) Urine Bilirubin Negative (Negative) Urine Urobilinogen 0.2 (<2.0) mg/dL Leukocyte Esterase Rfl 1+ H (Negative) ABEL/UL Urine RBC 3-5 H (0-2) /hpf Urine WBC 6-10 H (0-3) /hpf Ur Squamous Epith Cells Occasional (Few) /hpf Urine Bacteria None seen /hpf Urine Casts 0-2 Influenza A (RT-PCR) Negative (Negative) Influenza B (RT-PCR) Negative (Negative) RSV (RT-PCR) Negative (Negative) SARS-CoV-2 RNA (RT-PCR) Negative (Negative) Discharge Plan Discharge Clinical Impression: Fever and chills, Post-op pain Patient Disposition: Still a Patient Condition: Stable
[2024-03-26 18:48] LABS: Add Urine Microscopic? YES; Appearance Urine Cloudy (Clear); Bacteria Urine None Seen /hpf; Bilirubin Urine Negative (Negative); Blood Urine Negative (Negative); Color Urine Yellow (Yellow); Glucose Urine UA Negative (Negative); Ketones Urine Trace mg/dL (Negative); Leukocyte Esterase Ur 1+ LEU/UL (Negative); Nitrate Urine Negative (Negative); Non Pathogenic Casts 0-2; Protein Urine Trace mg/dL (Negative); Specific Grav Ur 1.023 (1.001-1.035); Squamous Epithelial Cell Urine Occasional /hpf (Few); Urobilinogen Urine 0.2 mg/dL (<2.0); pH Urine 5.5 (5.0-9.0)
--- NOTE | 2024-03-26 19:07 | ECG_ITS ---
Test Date: 2024-03-26 20:01:47 Measurements Intervals [place] Rate: 85 P: 79 OR: 160 QRS: 71 QRSD: 89 T: 64 QT: 353 QTc: 422 Interpretive Statements SINUS RHYTHM MINIMAL Q WAVES- LATERAL LEADS BASELINE ARTIFACT- I, AVR, AVL, V1 BORDERLINE ECG Compared to ECG 03/24/2024 11:27:21 No significant changes Electronically Signed On 03-27-2024 07:02:47 COMMUNITY NURSE by Taran Mayfield D.O.
[2024-03-26] MEDS: PIPERACILLN/TAZ 3.375GM/NS50ML 3.375 GM/50 ML BAG IVPB ×2 (19:11→22:08)
[2024-03-26] MEDS: SODIUM CHLORIDE 0.9% IV 1,000 ML 999 ML IV CONT ×2 (19:14→19:25)
[2024-03-26] MEDS: DOXYCYCLINE 100 MG/NS 100 ML 100 MG/100 ML BAG IVPB (19:31)
[2024-03-26 19:43] VITALS: BP 101/61; PULSE 85; RESP 20; TEMP 37.1; O2SAT 96
[2024-03-26] MEDS: SODIUM CHLORIDE 0.9% IV 400 ML 999 ML IV CONT (19:48)
[2024-03-26 20:49] VITALS: BP 113/94; PULSE 84; RESP 20; TEMP 37.1; O2SAT 95
[2024-03-26 21:39] VITALS: BMI 35.2
[2024-03-26 21:47] VITALS: BP 130/62; PULSE 86; RESP 18; TEMP 36.9; O2SAT 94
[2024-03-26] MEDS: SODIUM CHLORIDE 0.9% IV 1,000 ML 125 ML IV CONT (22:05)
--- NOTE | 2024-03-27 01:28 | PM.IMHP ---
H&P: HPI History of Present Illness Date/Time: 03/27/24 01:28 Chief Complaint: Fever Narrative: Patient had a nerve stimulator placed on 03/25/2024. She reported that she had a fever of 101 at home on the . She came into the ER for evaluation. She was admitted around 830 at night. She arrived to the medical floor around 09:00 o'clock the night nursing staff finished her admission around 22:30. Nursing staff called me 1 hour later that the patient was upset because she did not know why she was still at the hospital. She stated that she had not had a fever and she did not know why she stay at the hospital. She was upset that she had not received her home pain medications all day. I was in patient's room. Less than 15 minutes later nursing staff notified me again that the patient wanted to leave against medical advice. Nursing staff tried to explain to the patient that she was being evaluated for possible infection and was receiving antibiotics. The patient did not want to continue with antibiotic therapy as she felt she did not needed if she was not having fevers. The patient signed out against medical advice. I did not get to see the patient or provide care for the patient prior to her decision to leave against medical advice. She had exited the hospital before I could go evaluate her. FORMERLY [facility], [facility]–1983 Past Medical History Medical History Chronic pain associated with significant psychosocial dysfunction Chronic, continuous use of opioids HTN (hypertension) Hyperlipidemia SLE (systemic lupus erythematosus related syndrome) Stroke Family History Family History (Updated 03/26/24 @ 21:52 by Ashlyn Dhillon RN) Father Acute myocardial infarction Leukemia Congestive heart failure Diabetes mellitus Grandparent Acute myocardial infarction Mother Congestive heart failure Cerebrovascular accident Social History Social History Smoking packs per day: 0.15 Smoking cigarettes per day: 3.0 Years smoked: 30 Smoking pack-years: 4.50 Smoking status: Current some day smoker Tobacco type: cigarettes Second hand tobacco smoke exposure: Yes Alcohol intake: never Substance use: unknown Substance use type: marijuana Do You Feel Safe in your Home?: Yes Lack of Transportation: No Lack of Food: Never True Current Housing: I Have Housing Concerned About Future Housing: No Difficulty Paying Gas/Electric Bills: No Difficulty Paying for Meds: No Currently Unemployed: No Education: High School Diploma/GED Difficulty w/ Childcare or Family Care: No Living arrangements: with family Spiritual care concerns: No Meds Home Medications and Allergies Home Medications Medication Instructions Recorded Confirmed Type aspirin 81 mg tablet,delayed 81 mg PO DAILY 09/17/23 03/26/24 History release (Adult Low Dose Aspirin) atorvastatin 80 mg tablet 80 mg PO HS 09/17/23 03/26/24 History lisinopril 5 mg tablet 5 mg PO DAILY 09/17/23 03/26/24 History omeprazole 20 mg capsule,delayed 20 mg PO BID 09/17/23 03/26/24 History release tizanidine 4 mg tablet 4 mg PO TID 09/17/23 03/26/24 History nortriptyline 75 mg capsule 75 mg PO BID 10/30/23 03/26/24 History duloxetine 60 mg capsule,delayed 60 mg PO DAILY 12/11/23 03/26/24 History release hydroxyzine HCl 50 mg tablet 50 mg PO TID PRN Anxiety 02/18/24 03/26/24 History gabapentin 800 mg tablet 800 mg PO QID 02/26/24 03/26/24 History hydrocodone 10 mg-acetaminophen 1 tablet PO Q6H PRN Pain (Scale 03/26/24 03/26/24 History 325 mg tablet Score 4-6) Allergies Allergy/AdvReac Type Severity Reaction Status Date / Time No Known Allergies Allergy Verified 03/14/24 13:25 Vital Signs Vital Signs - 24 hr 03/26/24 13:58 03/26/24 14:20 03/26/24 17:55 Temperature 98.5 F 98.7 F 98.0 F Pulse Rate 103 H 94 Respiratory Rate 16 20 Blood Pressure 115/61 102/62 Pulse Oximetry 97 100 96 Oxygen Delivery Room Air Room Air 03/26/24 19:43 03/26/24 20:49 03/26/24 21:47 Temperature 98.7 F 98.7 F 98.4 F Pulse Rate 85 84 86 Respiratory Rate 20 20 18 Blood Pressure 101/61 113/94 H 130/62 Pulse Oximetry 96 95 94 Oxygen Delivery H&P: Results Labs Labs: Short CBC 03/26/24 Range/Units 15:39 WBC 11.6 H (4.5-10.0) K/mm3 Hgb 13.6 (12.0-15.0) g/dL Hct 40.4 (37.0-47.0) % Plt Count 267 (150-375) k/mm3 BMP 03/26/24 15:39 Sodium 137 Potassium 3.5 Chloride 106 Carbon Dioxide 26 BUN 9 D Creatinine 0.70 Glucose 112 H Calcium 8.4 Liver Function 03/26/24 Range/Units 15:39 Total Bilirubin 0.4 (0.2-1.3) mg/dL AST 24 (14-36) U/L ALT 22 (6-35) U/L Alkaline Phosphatase 125 (38-126) U/L Albumin 3.7 (3.5-5.1) g/dL Urine 03/26/24 Range/Units 18:39 Urine Color Yellow (Yellow) Urine Appearance Cloudy H (Clear) Urine pH 5.5 (5.0-9.0) Ur Specific Rule 1.023 (1.001-1.035) Urine Protein Trace (Negative) mg/dL Urine Glucose (UA) Negative (Negative) mg/dL Assessment and Plan Assessment and plan (1) Postoperative fever: Code(s): R50.82 - Postprocedural fever Status: Acute (2) Acute postoperative pain: Code(s): G89.18 - Other acute postprocedural pain Status: Acute (3) Chronic pain associated with significant psychosocial dysfunction: Code(s): G89.4 - Chronic pain syndrome Status: Acute
--- NOTE | 2024-03-27 03:52 | PC.NURSE ---
Pt had been agitated about her wait in the ED when she arrived to the floor. I spent about an hour with her after arrival doing her admission and answering questions. She wanted her evening medications. I explained the process that the Dr had to evaluate her first and restart them. Pt started calling out angry that she didnt have meds yet. She was accusing us of holding her prisoner cause she wanted to go. I educated her on the risks of leaving but that no one was forcing her to stay. She said she was going to call her which she did. She later asked for papers to leave
== END 2024-03-27 | disposition left against medical advice (07) ==
LOC: ANHED 16:22 → ANH3MED 20:48
PROVIDERS: Admitting Provider Internal Medicine; Emergency Provider Emergency Medicine; PCP Anesthesiology Pain Medicine; Visit Provider Internal Medicine
DX: R50.82 Postprocedural fever (principal); G89.18 Other acute postprocedural pain; G89.4 Chronic pain syndrome; F17.210 Nicotine dependence, cigarettes, uncomplicated; F11.90 Opioid use, unspecified, uncomplicated; I10 Essential (primary) hypertension; E78.5 Hyperlipidemia, unspecified; M32.9 Systemic lupus erythematosus, unspecified; Z20.822 Contact with and (suspected) exposure to COVID-19; Z79.82 Long term (current) use of aspirin; Z79.899 Other long term (current) drug therapy; Z86.73 Personal history of transient ischemic attack (TIA), and cerebral infarction without residual deficits
CPT/HCPCS: 36415; 71045; 74177; 80053; 81001; 85025; 87040; 87086; 87637; 93005; 96365; 96368; 96375; 96376; 99285; G0378; G0379; J1171; J2543; J7030; Q9967

== ENCOUNTER 2024-09-04 09:08 | Outpatient (CLI) | payer OTHER, SELFPAY ==
--- NOTE | ~2024-09-04 | NM_ITS ---
CORRECTED REPORT corrected examination description to [facility] 09/04/24 This report was recreated on 09/04/24. Original report was EXAMINATION: [facility] DATE: 09/04/2024 13:07 INDICATION: Chronic cholecystitis. Cholelithiasis. COMPARISON: None. TECHNIQUE: 5.3 mCi Tc-99m mebrofenin (Choletec) was administered intravenously. Scintigraphic images of the abdomen were obtained for one hour. Additional 4 hour delayed scintigrams were obtained. FINDINGS: There is normal clearance of radiotracer from the blood pool. There is homogeneous tracer uptake by the liver. Activity progresses to the common bile duct by 25 minutes with bowel activity seen on the subsequent 30 minute imaging. There is progressive accumulation of activity throughout the bowel over the following 30 minutes. There is essentially no residual hepatic activity on the 4 hour delayed images with activity disc spaces throughout the bowel. No gallbladder activity identified. IMPRESSION: 1. No evident bladder activity over the course of the study which could be due to chronic cholecystitis versus acute cholecystitis in the appropriate clinical setting. Correlate clinically for Dickens sign and could consider HIDA scan for further evaluation as clinically indicated. Reviewed, dictated and finalized at location A. MTDD IMPRESSION: 1. No evident bladder activity over the course of the study which could be due to chronic cholecystitis versus acute cholecystitis in the appropriate clinica l setting. Correlate clinically for Dickens sign and could consider HIDA scan fo r further evaluation as clinically indicated.
--- OUTSIDE RECORDS SUMMARY | 2024-09-04 09:23 | XMS_ITS | Referral Summary ---
Author Organization [facility] [place] [facility] Address [address] [facility] [facility] [address] [place] [address] Care Team Providers Care Coffee Shop Manager Name Role Phone Herbert Burch NP Unavailable [phone] Sree Lloyd MD Unavailable [phone] Michael Jarrett MD Unavailable [phone] Jessa Cao MD Unavailable [phone] Kavin Cruz PT Unavailable Unavailable Sanam Campos NP Primary Care Provider [phone] Encounters Date Type Department Care Team Description 08/21/2024 8:55 AM CDT Lab [address] [phone] 08/21/2024 7:57 AM CDT - 08/21/2024 11:59 PM CDT Hospital Encounter [facility] [address] [place] [address] Encounter for screening mammogram for malignant neoplasm of breast Discharge Disposition: Discharge to home or self care 08/07/2024 7:45 AM CDT Therapy [facility] [address] [place] [address] Moon Jo, PT Unsteadiness on feet (Primary Dx) 08/05/2024 7:45 AM CDT Therapy [facility] [address] [place] [address] Moon Jo, PT Unsteadiness on feet (Primary Dx) 07/31/2024 8:21 AM CDT - 07/31/2024 11:59 PM CDT Hospital Encounter [facility] [address] [place] [address] Postmenopausal bleeding Discharge Disposition: Discharge to home or self care 07/31/2024 8:20 AM CDT - 07/31/2024 11:59 PM CDT Hospital Encounter [facility] [address] [place] [address] Abnormal findings on diagnostic imaging of other abdominal regions, including retroperitoneum Discharge Disposition: Discharge to home or self care 07/29/2024 7:00 AM CDT Therapy [address] [address] Quincy Ace , DISPLAY CARVER Unsteadiness on feet (Primary Dx) 07/24/2024 7:15 AM CDT Therapy [address] [address] Moon Jo, PT Unsteadiness on feet (Primary Dx) 07/21/2024 1:00 PM CDT Therapy [address] [address] Quincy Ace , DISPLAY CARVER Unsteadiness on feet (Primary Dx) 07/17/2024 Telephone [facility] at [address] [place] [id number] Rita Sanchez MA 07/17/2024 7:45 AM CDT Therapy [address] [address] Moon Jo, PT Unsteadiness on feet (Primary Dx) 06/10/2024 7:00 AM FOREIGN DIPLOMAT Therapy [address] [address] Kavin Cruz, PT Unsteadiness on feet (Primary Dx); Chronic pain syndrome; Radiculopathy, lumbosacral region; Dorsalgia, unspecified; Postlaminectomy syndrome, not elsewhere classified 06/09/2024 Telephone [facility] at [address] [place] [address] Zane Mckeon, DO from Last 3 Months Allergies No known active allergies Medications nortriptyline (PAMELOR) 75 mg capsule Take 1 capsule (75 mg total) by mouth 2 (two) times a day Active gabapentin (NEURONTIN) 600 mg tablet Take 800 mg by mouth 3 (three) times a day Active DULoxetine DR (CYMBALTA) 30 mg capsule Take 1 capsule (30 mg total) by mouth daily Active ondansetron ODT (ZOFRAN-ODT) 4 mg disintegrating tablet Take 1 tablet (4 mg total) by mouth every 8 (eight) hours as needed for nausea or vomiting Active omeprazole (PriLOSEC) 40 mg capsule Take 1 capsule (40 mg total) by mouth 2 (two) times a day Active albuterol HFA (PROVENTIL HFA,VENTOLIN HFA,PROAIR HFA) 90 mcg/actuation inhaler Inhale 1 Active HYDROcodone-acetami nophen (NORCO) 10-325 mg per tabletIndications:P ain Take 1 tablet by mouth every 8 (eight) hours as needed for pain Active oxyCODONE-acetamino phen (PERCOCET) 5-325 mg per tabletIndications:P ain Take 1 tablet by mouth every 8 (eight) hours as needed for pain Active meloxicam (MOBIC) 15 mg tablet Take 1 tablet (15 mg total) by mouth daily Active tiZANidine (ZANAFLEX) 4 mg tablet Take 1 tablet (4 mg total) by mouth 3 (three) times a day Active atorvastatin (LIPITOR) 80 mg tablet Take 1 tablet (80 mg total) by mouth nightly 30 tablet 3 Active aspirin 81 mg enteric coated tablet Take 1 tablet (81 mg total) by mouth daily 30 tablet 1 3 Active hydrOXYzine (VISTARIL) 50 mg capsuleIndications: anxiety Take 1 capsule (50 mg total) by mouth every 6 (six) hours as needed for anxiety 30 capsule 3 Active nicotine (NICODERM CQ) [address] 1 patch on the skin daily 30 patch 3 Active lisinopriL (PRINIVIL,ZESTRIL) 5 mg tablet Take 1 tablet (5 mg total) by mouth daily 3 Active Active Problems Problem Noted Date Diagnosed Date Screening for colon cancer 06/09/2024 Smoker 03/05/2023 Class 1 obesity with body ma ss index (BMI) of 34.0 to 34.9 in adult 03/05/2023 Anxiety 03/03/2023 PFO (patent foramen ovale) 03/02/2023 TIA (transient ischemic attack) 03/02/2023 Migraine with aura and witho ut status migrainosus, not intractable 03/02/2023 Syncope and collapse 02/28/2023 Chronic back pain 02/28/2023 Social History Tobacco Use Types Packs/Day Years Used Date Smoking Tobacco: Every Day Cigarettes 1 36 Smokeless Tobacco: Never Tobacco Cessation:Ready to Q uit: Not Asked; Counseling Given: Not Answered Comments:Is using the patch occasionally Lever Answer Date Recorded In the past 12 months has [employer], oil, or water Bloxy threatened to shut off services in your home? No 03/01/2023 Social Connection and Isolation Panel [NHANES] A nswer Date Recorded In a typical week, how many times do you talk on the phone with family, friends, or neighbors? Three times a week 03/01/2023 How often do you get togethe r with friends or relatives? Three times a week 03/01/2023 How often do you attend [facility] or anglican services? Never 03/01/2023 Do you belong to any clubs o r organizations such as baptism groups, unions, fraternal or athletic groups, or school groups? No 03/01/2023 How often do you attend meet ings of the clubs or organizations you belong to? Never 03/01/2023 Are you , , di vorced, , never , or living with a partner? 03/01/2023 AUDIT-C Answer Date Recorded Q1: How often do you have a drink containing alc ohol? Monthly or less 02/28/2023 Q2: How many drinks containi ng alcohol do you have on a typical day when you are drinking? 1 or 2 02/28/2023 Q3: How often do you have si x or more drinks on one occasion? Less than monthly 02/28/2023 Overall Financial Resource Strain (CARDIA) Answe r Date Recorded How hard is it for you to pa y for the very basics like food, housing, medical care, and heating? Not hard at all 03/01/2023 Hunger Vital Sign Answer Date Recorded Within the past 12 months, y ou worried that your food would run out before you got the money to buy more. Never true 03/01/20 23 Within the past 12 months, t he food you bought just didn't last and you didn't have money to get more. Never true 03/01/2023 PRAPARE - Transportation Answer Date Re corded In the past 12 months, has l ack of transportation kept you from medical appointments or from getting medications? No 05/2022 In the past 12 months, has l ack of transportation kept you from meetings, work, or from getting things needed for daily living? No 03/01/2023 Housing Stability Vital Sign Answer Gerson e Recorded In the last 12 months, was t here a time when you were not able to pay the mortgage or rent on time? No 03/01/2023 In the last 12 months, how many places have you lived? 1 03/01/2023 In the last 12 months, was t here a time when you did not have a steady place to sleep or slept in a snf (including now)? No 03/01/2023 Personal Safety Answer Date Recorded Have you ever been in or are you currently in a harmful physical or emotional relationship or is someone making you feel afraid or unsafe? Denies 02/28/2023 Education Answer Date Recorded What is the highest level of school you have completed or the highest degree you have received? Some college, no degree 03/01/2023 Comments No Sex and Gender Information Value Date Recorded Sex Assigned at Not on file Legal Sex Female 4:45 PM FOREIGN DIPLOMAT Gender Identity Not on file Sexual Orientation Not on file Last Filed Vital Signs Vital Sign Reading Time Taken Comments Blood Pressure 120/72 04/13/2023 3:00 PM FOREIGN DIPLOMAT Pulse 84 04/13/2023 3:00 PM FOREIGN DIPLOMAT Temperature 35.6 C (96 F) 03/05/2023 7:36 AM FOREIGN DIPLOMAT Respiratory Rate 18 04/13/2023 3:00 PM FOREIGN DIPLOMAT Oxygen Saturation 95% 03/05/2023 7:36 AM FOREIGN DIPLOMAT Inhaled Oxygen Concentration - - Weight 76.7 kg (169 lb) 08/21/2024 8:25 AM CDT Height 149.9 cm (4' 11 ) 08/21/2024 8:25 AM CDT Body Mass Index 34.13 08/21/2024 8:25 AM CDT Plan of Treatment Upcoming Encounters Date Type Department Care Team (Late st Contact Info) Description 01/21/2025 7:30 AM CDT Hospital Encounter [address] [address] Zane Mckeon DO [address] [facility] [address] [place] [address] 01/21/2025 7:30 AM CDT - 01/21/2025 8:00 AM CDT Surgery [address] [address] Zane Mckeon DO [address] [facility] [address] [place] [address] COLONOSCOPY Scheduled Procedures Name Priority Associated Diagnoses Date/Ti me COLONOSCOPY Screening for colon cancer 01/21/2025 7:30 AM CDT Procedures Procedure Name Priority Date/Time Associated Diagnosis Comments EGFR Routine 08/21/2024 9:03 AM CDT COMPREHENSIVE METABOLIC PANEL Routine 08/21/2024 9:03 AM CDT SCREENING MAMMOGRAM BILATERAL W ARNIE Schedule Routine, Read Routine (OP Routine) 08/21/2024 8:39 AM CDT Encounter for screening mammogram for malignant neoplasm of breast US TRANSVAGINAL Schedule Routine, Read Routine (OP Routine) 07/31/2024 10:34 AM CDT Postmenopausal bleeding US ABDOMEN COMPLETE Schedule Routine, Read Routine (OP Routine) 07/31/2024 10:31 AM CDT Abnormal findings on diagnostic imaging of other abdominal regions, including retroperitoneum from Last 3 Months Results * eGFR (08/21/2024 9:03 AM CDT) eGFR >90 >=60 mL/min/1. 73 m2 Comment: Interpretive Data Reference Interval Normal >/= 90 mL/min/1.73m2 Mildly decreased* 60 - 89 mL/min/1.73m2 Mildly to moderately decreased 45 - 59 mL/min/1.73m2 Moderately to severely decreased 30 - 44 mL/min/1.73m2 Severely decreased 15 - 29 mL/min/1.73m2 Kidney Failure < 15 mL/min/1.73m2 *Relative to young adult level Estimated glomerular filtration rate is determined by the 2020 CKD-EPI equation recommended by the National Kidney Foundation (A Unifying Approach to GFR Estimation: Recommendations of the NKF-ASK Task Force on Reassessing the Inclusion of Race in Diagnosing Kidney Disease, JASN 2020). The CKD-EPI equation should not be used for patients with unstable renal function and has not been validated in children and those over 70. Current interpretive data was last reviewed 2021. Blood 08/21/2024 9:03 AM CDT 08/21/2024 10:16 AM CDT us Notinfile Unknown LAB BLOOD ORDERABLES Final Res ult [facility] 1 [facility] Department of Laboratories [place], [place] [id number] * (ABNORMAL) Comprehensive metabolic panel (08/21/2024 9:03 AM CDT) Sodium 141 135 - 145 mmol/L Potassium, pl 4.1 3.3 - 4.9 mmol/L [facility]) Comment:Moderately Hemolyzed Specimen. Results may be affected. Chloride 104 97 - 110 mmol/L [facility] CO2 26 22 - 32 mmol/L [facility] Anion gap 12 2 - 15 mmol/L [facility] BUN 8 6 - 25 mg/dL [facility] Creatinine 0.74 0.60 - 1.10 mg/dL [facility] Glucose 87 70 - 199 mg/dL [facility] Comment: Interpretive Data Fasting glucose >/= 126 mg/dl is diagnostic for diabetes. Fasting is defined as no caloric intake for at least 8 hours. Fasting glucose between 100 mg/dl to 125 mg/dl is diagnostic of prediabetes. In a patient with classic symptoms of hyperglycemia or hyperglycemic crisis, a random glucose >/= 200 mg/dl is diagnostic for diabetes. In the absence of unequivocal hyperglycemia, results should be confirmed by repeat testing. The classification and Diagnosis of Diabetes Diabetes Care 2021; 46: S19-S40. Current interpretive data was last revised 2022. Calcium 9.0 8.5 - 10.3 mg/dL [facility] Bilirubin, total 0.3 0.1 - 1.2 mg/dL [facility]) Protein, pl 6.6 6.5 - 8.5 g/dL [facility]) Albumin 3.8 3.5 - 5.0 g/dL [facility]) Alk phos 134(H) 40 - 130 Units/L [facility] ALT 19 7 - 45 Units/L [facility] ([facility]) Comment: Hemolysis present. Results may be affected. Moderately Hemolyzed Specimen AST 22 10 - 45 Units/L [facility] ([facility]) Comment: Hemolysis present. Results may be affected. Moderately Hemolyzed Specimen Blood 08/21/2024 9:03 AM CDT 08/21/2024 10:16 AM CDT us Notinfile Unknown LAB BLOOD ORDERABLES Final Res ult [facility] 1 [facility] Department of Laboratories [place], [place] [id number] * Screening Mammogram Bilateral W Arnie (08/21/2024 8:39 AM CDT) Anatomical Region Laterality Modality Breast Bilateral Mammography 08/22/2024 4:28 PM CDT Impressions 08/22/2024 4:28 PM CDT There is no mammographic evidence to suggest malignancy. The patient may continue screening mammography as per ACR guidelines. FINAL ASSESSMENT: BI-RADS Category 1: Negative. Electronically signed by: Shanita Painting M.D. Narrative 08/22/2024 4:28 PM CDT EXAMINATION: BILATERAL SCREENING MAMMOGRAM WITH TOMOGRAPHY HISTORY: Screening. COMPARISON(S): None. TECHNIQUE: Full-field 2D images and digital tomosynthesis images were obtained. CAD was utilized. BREAST PARENCHYMAL COMPOSITION: The breasts are almost entirely fatty. FINDINGS: There are no suspicious masses. No suspicious calcifications are seen. There is no unexplained architectural distortion. There is no skin thickening seen. There are no mammographically abnormal lymph nodes seen in the axillae or elsewhere. Procedure Note Shanita Painting MD - 08/22/2024 EXAMINATION: BILATERAL SCREENING MAMMOGRAM WITH TOMOGRAPHY HISTORY: Screening. COMPARISON(S): None. TECHNIQUE: Full-field 2D images and digital tomosynthesis images were obtained. CAD was utilized. BREAST PARENCHYMAL COMPOSITION: The breasts are almost entirely fatty. FINDINGS: There are no suspicious masses. No suspicious calcifications are seen. There is no unexplained architectural distortion. There is no skin thickening seen. There are no mammographically abnormal lymph nodes seen in the axillae or elsewhere. IMPRESSION: There is no mammographic evidence to suggest malignancy. The patient may continue screening mammography as per ACR guidelines. FINAL ASSESSMENT: BI-RADS Category 1: Negative. Electronically signed by: Shanita Painting M.D. us Ivet Wilkins NP IMG MAMMO PROCEDURES Final Re sult * US Transvaginal (07/31/2024 10:34 AM CDT) Anatomical Region Laterality Modality Pelvis N/A Ultrasound 08/08/2024 7:55 PM CDT Narrative 08/08/2024 7:56 PM CDT EXAM DESCRIPTION: US TRANSVAGINAL REASON FOR STUDY: N95.0 TECHNIQUE: Grayscale ultrasound of the pelvic contents was performed with transabdominal and transvaginal transducer. COMPARISON: None FINDINGS: UTERUS: The uterus is anteverted. The uterus is homogenous in echotexture and measures 5.3 x 4.2 x 2.5 cm. ENDOMETRIUM: The endometrium measures 3 mm in thickness. RIGHT OVARY: Not visualized. No right adnexal mass. LEFT OVARY: Not visualized. No left adnexal mass. PELVIC FLUID: There is no evidence of free fluid in the pelvis. OTHER: No other significant findings. IMPRESSION: Normal uterus. Nonvisualization of the ovaries. THIS IS AN ELECTRONICALLY VERIFIED FINAL REPORT 08/08/2024 7:56 PM - Electronically signed by Nayeli Keating M.D. LL: CHARLES Report ID: [id number] Reading Location: [id number] Procedure Note Nayeli Keating MD - 08/08/2024 EXAM DESCRIPTION: US TRANSVAGINAL REASON FOR STUDY: N95.0 TECHNIQUE: Grayscale ultrasound of the pelvic contents was performed with transabdominal and transvaginal transducer. COMPARISON: None FINDINGS: UTERUS: The uterus is anteverted. The uterus is homogenous inechotexture and measures 5.3 x 4.2 x 2.5 cm. ENDOMETRIUM: The endometrium measures 3 mm in thickness. RIGHT OVARY: Not visualized. No right adnexal mass. LEFT OVARY: Not visualized. No left adnexal mass. PELVIC FLUID: There is no evidence of free fluid in the pelvis. OTHER: No other significant findings. IMPRESSION: Normal uterus. Nonvisualization of the ovaries. THIS IS AN ELECTRONICALLY VERIFIED FINAL REPORT 08/08/2024 7:56 PM - Electronically signed by Nayeli Keating M.D. LL: CHARLES Report ID: [id number] Reading Location: [id number] Not In File Miscellaneous IMG US PROCEDURES Luciana l Result * US Abdomen Complete (07/31/2024 10:31 AM CDT) Anatomical Region Laterality Modality Abdomen N/A Ultrasound 08/08/2024 7:51 PM CDT Narrative 08/08/2024 7:55 PM CDT EXAM DESCRIPTION: US ABDOMEN COMPLETE REASON FOR STUDY: R93.5 TECHNIQUE: Grayscale images acquired of the abdomen and recorded on PACS. Additional selected color Doppler and spectral images recorded. COMPARISON: CT performed 03/26/2024 FINDINGS: PANCREAS: Visualized portions of the pancreas are within normal limits. Portions of the pancreatic body and tail are obscured due to bowel gas. LIVER: No masses. Echotexture and echogenicity normal. Main portal vein is patent with antegrade flow. GALLBLADDER: No cholelithiasis. No gallbladder wall thickening or pericholecystic fluid. There is an echogenic focus along the wall of the gallbladder measuring 1.1 x 0.7 x 0.6 cm. This may be a gallbladder polyp. No positive sonographic Gunlock sign reported. BILIARY: The common bile duct is dilated. Common bile duct measures 8.2 mm. . INFERIOR VENA CAVA: Normal flow. AORTA: No aneurysm. RIGHT KIDNEY: Normal size. Normal echogenicity. No solid mass or cyst. No hydronephrosis. Measures 9.1 cm in length. LEFT KIDNEY: Normal size. Normal echogenicity. No solid mass or cyst. No hydronephrosis. Measures 10.4 cm in length. SPLEEN: Not visualized. PERITONEAL AND PLEURAL SPACES: No ascites or effusions. OTHER: No other significant finding. IMPRESSION: 1.1 cm echogenic focus along the wall of the gallbladder may be a gallbladder polyp. Follow-up is recommended in 6 months. Dilated common bile duct. Correlate with biliary function tests. Nonvisualization of the spleen. THIS IS AN ELECTRONICALLY VERIFIED FINAL REPORT 08/08/2024 7:55 PM - Electronically signed by Nayeli Keating M.D. LL: CHARLES Report ID: [id number] Reading Location: [id number] Procedure Note Nayeli Keating MD - 08/08/2024 EXAM DESCRIPTION: US ABDOMEN COMPLETE REASON FOR STUDY: R93.5 TECHNIQUE: Grayscale images acquired of the abdomen and recorded on PACS. Additional selected color Doppler and spectral images recorded. COMPARISON: CT performed 03/26/2024 FINDINGS: PANCREAS: Visualized portions of the pancreas are within normal limits. Portions of the pancreatic body and tail are obscured due to bowel gas. LIVER: No masses. Echotexture and echogenicity normal. Main portal veinis patent with antegrade flow. GALLBLADDER: No cholelithiasis. No gallbladder wall thickening or pericholecystic fluid. There is an echogenic focus along the wall of the gallbladder measuring 1.1 x 0.7 x 0.6 cm. This may be a gallbladderpolyp. No positive sonographic Gunlock sign reported. BILIARY: The common bile duct is dilated. Common bile duct measures8.2 mm. . INFERIOR VENA CAVA: Normal flow. AORTA: No aneurysm. RIGHT KIDNEY: Normal size. Normal echogenicity. No solid mass or cyst.No hydronephrosis. Measures 9.1 cm in length. LEFT KIDNEY: Normal size. Normal echogenicity. No solid mass or cyst. No hydronephrosis. Measures 10.4 cm in length. SPLEEN: Not visualized. PERITONEAL AND PLEURAL SPACES: No ascites or effusions. OTHER: No other significant finding. IMPRESSION: 1.1 cm echogenic focus along the wall of the gallbladder may be agallbladder polyp. Follow-up is recommended in 6 months. Dilated common bile duct. Correlate with biliary function tests. Nonvisualization of the spleen. THIS IS AN ELECTRONICALLY VERIFIED FINAL REPORT 08/08/2024 7:55 PM - Electronically signed by Nayeli Keating M.D. LL: CHARLES Report ID: [id number] Reading Location: [id number] us Not In File Miscellaneous IMG US PROCEDURES Luciana l Result from Last 3 Months Insurance [facility] [address] [facility] Advance Directives For more information, please contact: [phone] * Full Code (Latest Code Status on File) Date Activated Date Inactivated Comments 02/28/2023 1:49 PM 03/05/2023 3:28 PM Care Teams Coffee Shop Manager Relationship Specialty Start Date End Date Sanam Campos NP [address] [place] [id number] PCP - General Nurse Practitioner 08/21/24 Herbert Burch NP [address] [place] [place] [address] Family Medicine 06/15/23 Sree Lloyd MD [address] [facility] [place] [address] Consulting Physician Neurology 03/05/23 Michael Jarrett MD [address] [place] [address] [place] [address] Consulting Physician Cardiovascular Disease 03/05/23 Jessa Cao MD [address] [facility] [place] [address] Resident Family Medicine 03/05/23 Kavin Cruz, PT Physical Therapist Physical Therapy 06/05/24
--- OUTSIDE RECORDS SUMMARY | 2024-09-04 09:23 | XMS_ITS | Clinical Summary ---
Author Organization [facility] Address [address] [place] [address] Care Team Providers Care Practice Or Student Teacher Name Role Phone Herbert Burch NP Unavailable [phone] Sree Lloyd MD Unavailable [phone] Michael Jarrett MD Unavailable [phone] Jessa Cao MD Unavailable [phone] Kavin Cruz PT Unavailable Unavailable Sanam Campos NP Primary Care Provider [phone] Allergies No known active allergies Medications nortriptyline [...] and collapse 02/28/2023 Chronic back pain 02/28/2023 Encounters Date Type Department Care Team Description 08/21/2024 8:55 AM CDT Lab [address] [address] 08/21/2024 7:57 AM CDT - 08/21/2024 11:59 PM CDT Hospital Encounter [facility] [address] [place] [address] Encounter for screening mammogram for malignant neoplasm of breast Discharge Disposition: Discharge to home or self care 08/07/2024 7:45 AM CDT Therapy [address] [address] Moon Jo, PT Unsteadiness on feet (Primary Dx) 08/05/2024 7:45 AM CDT Therapy [address] [address] Moon Jo, PT Unsteadiness on feet (Primary Dx) 07/31/2024 8:21 AM CDT - 07/31/2024 11:59 PM CDT Hospital Encounter [address] [address] Postmenopausal bleeding Discharge Disposition: Discharge to home or self care 07/31/2024 8:20 AM CDT - 07/31/2024 11:59 PM CDT Hospital Encounter [address] [address] Abnormal findings on diagnostic imaging of other abdominal regions, including retroperitoneum Discharge Disposition: Discharge to home or self care 07/29/2024 7:00 AM CDT Therapy [address] [address] Quincy Ace , [employer] PROGRAMS DIRECTOR Unsteadiness on feet (Primary Dx) 07/24/2024 7:15 AM CDT Therapy [address] [address] Moon Jo, PT Unsteadiness on feet (Primary Dx) 07/21/2024 1:00 PM CDT Therapy [address] & [place] [address] Quincy Ace , [employer] PROGRAMS DIRECTOR Unsteadiness on feet (Primary Dx) 07/17/2024 7:45 AM CDT Therapy [address] & [place] [address] Moon Jo, PT Unsteadiness on feet (Primary Dx) 07/17/2024 Telephone [facility] G[facility]ology at [address] [place] [address] Rita Sanchez MA 06/10/2024 7:00 AM HEALTH NAVIGATOR Therapy [facility] [address] [facility] [place] [address] Kavin Cruz PT Unsteadiness on feet (Primary Dx); Chronic pain syndrome; Radiculopathy, lumbosacral region; Dorsalgia, unspecified; Postlaminectomy syndrome, not elsewhere classified 06/09/2024 Telephone [facility] G[facility] at [address] [place] [address] Zane Mckeon, DO from Last 3 Months Surgical History Surgery Date Site/Laterality Comments BACK SURGERY Social History Tobacco Use Types Packs/Day Years Used Date Smoking Tobacco: Every Day Cigarettes 1 36 Smokeless Tobacco: Never Tobacco Cessation:Ready to Q uit: Not Asked; Counseling Given: Not Answered Comments:Is using the patch occasionally [email or web address] Answer Date Recorded In the past 12 months has [employer], gas, oil, or water [employer] threatened to shut off services in your [...] week 03/01/2023 How often do you attend [facility] or rastafari services? Never 03/01/2023 Do you belong to any clubs o r organizations such as jewish groups, unions, fraternal or athletic groups, or [...] place to sleep or slept in a care home (including now)? No 03/01/2023 Personal Safety Answer [...] on file Legal Sex Female 4:45 PM HEALTH NAVIGATOR Gender Identity Not on file Sexual Orientation Not on file Obstetrics History Para Term AB IAB SAB Ectopic Multiple Livin g Live Births 2 2 2 Date Outcome GA Total Labor Labor/2nd/3rd Weight Sex Type Anes PTL Tana A1 A5 Name Clin Term Term Last Filed Vital Signs Vital Sign Reading Time Taken Comments Blood Pressure 120/72 04/13/2023 3:00 PM HEALTH NAVIGATOR Pulse 84 04/13/2023 3:00 PM HEALTH NAVIGATOR Temperature 35.6 C (96 F) 03/05/2023 7:36 AM HEALTH NAVIGATOR Respiratory Rate 18 04/13/2023 3:00 PM HEALTH NAVIGATOR Oxygen Saturation 95% 03/05/2023 7:36 AM HEALTH NAVIGATOR Inhaled Oxygen Concentration - - Weight 76.7 kg (169 lb) 08/21/2024 8:25 AM CDT Height 149.9 cm (4' 11 ) 08/21/2024 8:25 AM CDT Body Mass Index 34.13 08/21/2024 8:25 AM CDT Plan of Treatment Upcoming Encounters Date Type Department Care Team (Late st Contact Info) Description 01/21/2025 7:30 AM CDT Hospital Encounter [address] [address] Zane Mckeon DO [address] [place] [address] 01/21/2025 7:30 AM CDT - 01/21/2025 8:00 AM CDT Surgery [address] [address] Zane Mckeon DO [address] [place] [address] COLONOSCOPY Scheduled Procedures Name Priority Associated Diagnoses Date/Ti me COLONOSCOPY Screening for colon cancer 01/21/2025 7:30 AM CDT Health Maintenance Due Date Last Done Comments Cervical Cancer Screening 1970 Colon Cancer Screening-Colonoscopy 1970 Depression Screening 1970 Hepatitis C Screening 1970 DTaP/Tdap/Td Vaccine (1 - Tdap) 1981 Hepatitis B Screening 1988 Regular Well Visit/Exam 18-64 1988 Pneumococcal vaccine <65 (1 of 2 - PCV) 1989 Lung Cancer Screening 2020 Zoster Vaccine (1 of 2) 2020 Covid-19 Vaccine (2 - season) 12/30/202304/2020 Influenza Vaccine (Season Ended) 2024 Breast Cancer Screening-Mammogram 08/21/2025 025 Procedures Procedure Name Priority Date/Time Associated Diagnosis [...] LAB BLOOD ORDERABLES Final Res ult [facility] [place] [address] * (ABNORMAL) Comprehensive metabolic panel (08/21/2024 9:03 AM CDT) Sodium 141 135 - 145 mmol/L Potassium, pl 4.1 3.3 - 4.9 mmol/L [facility] Comment:Moderately Hemolyzed Specimen. Results may be affected. Chloride 104 97 - 110 mmol/L [facility] CO2 26 22 - 32 mmol/L [facility] Anion gap 12 2 - 15 mmol/L [facility] BUN 8 6 - 25 mg/dL [facility] Creatinine 0.74 0.60 - 1.10 [...] Specimen AST 22 10 - 45 Units/L [facility] ([place]) Comment: Hemolysis present. Results may be affected. Moderately Hemolyzed Specimen Blood 08/21/2024 9:03 AM CDT 08/21/2024 10:16 AM CDT us Notinfile Unknown LAB BLOOD ORDERABLES Final Res ult [facility] [place] [address] * Screening Mammogram Bilateral W Arnie (08/21/2024 [...] by: Shanita Painting M.D. us Ivet Wilkins WEBSPHERE CONSULTANT IMG MAMMO PROCEDURES Final Re sult * [...] Nayeli Keating M.D. LL: CHARLES Report ID: [id number] Reading Location: [id number] Procedure Note Nayeli Keating MD - 08/08/2024 [...] Nayeli Keating M.D. LL: CHARLES Report ID: [id number] Reading Location: [id number] us Not In File Miscellaneous IMG US [...] be a gallbladder polyp. No positive sonographic Wilbur sign reported. BILIARY: The common bile duct [...] Nayeli Keating M.D. LL: CHARLES Report ID: [id number] Reading Location: [id number] Procedure Note Nayeli Keating MD - 08/08/2024 [...] may be a gallbladderpolyp. No positive sonographic Wilbur sign reported. BILIARY: The common bile duct [...] Nayeli Keating M.D. LL: CHARLES Report ID: [id number] Reading Location: [place] [address] us Not In File Miscellaneous IMG US PROCEDURES Luciana l Result from Last 3 Months Insurance [facility] [place] [address] Advance Directives For more information, please contact: [phone] * Full Code (Latest Code Status on File) Date Activated Date Inactivated Comments 02/28/2023 1:49 PM 03/05/2023 3:28 PM Care Teams Practice Or Student Teacher Relationship Specialty Start Date End Date Sanam Campos NP [address] [place] [address] PCP - General Nurse Practitioner 08/21/24 Herbert Burch NP [address] [place] [address] Family Medicine 06/15/23 Sree Lloyd MD [address] [place] [address] [place] [address] Consulting Physician Neurology 03/05/23 Michael Jarrett MD [address] [place] [address] [place] [address] Consulting Physician Cardiovascular Disease 03/05/23 Jessa Cao MD [address] [place] [address] [place] [address] Resident Family Medicine 03/05/23 Kavin Cruz, PT Physical Therapist Physical Therapy 06/05/24
--- OUTSIDE RECORDS SUMMARY | 2024-09-04 09:23 | XMS_ITS | Clinical Summary ---
Author Organization [facility] Address [address] [place] [address] Care Team Providers Care Comb Setter Name Role Phone Herbert Burch Primary Care Provider [phone] Source Comments [facility],non-owned Affiliates and Associated Physician Practices is amultiple site organization consisting of ambulatory clinics and hospital sitesin [place] and [place]. This disclosure is being madepursuant to the Care Everywhere program and may not contain all information available regarding this patient. Last updated 18.[facility] Allergies No known active allergies Medications * Be aware that medications may not be up to date on this document. Alwaysverify current medications with the patient. omeprazole (PriLOSEC) 20 MG capsule Take 1 (one) capsule by mouth 2 times daily 3 Active nortriptyline (Pamelor) 75 MG capsule Take 1 (one) capsule by mouth once daily 3 Active ondansetron, disintegrating , (Zofran ODT) 4 MG tablet Ondansetron 4 MG Oral Tablet Disintegrating QTY: 21 tablet Days: 21 Refills: 0 Written: 09/27/22 Patient Instructions: 3 Active tiZANidine (Zanaflex) 4 MG tablet 3 Active gabapentin (Neurontin) 600 MG tablet 800 mg four times daily per patient 3 Active meloxicam (Mobic) 15 MG tablet Take 1 (one) tablet by mouth once daily 3 Active HYDROcodone-ac etaminophen ([place]) 10-325 MG tablet Take 1 (one) tablet by mouth as needed 3 Active albuterol HFA (Proventil; Ventolin; Proair) 108 (90 Base) MCG/ACT inhaler Albuterol Sulfate HFA 108 (90 Base) MCG/ACT Inhalation Aerosol Solution QTY: 8.5 Days: 16 Refills: 0 Written: 09/29/22 Patient Instructions: 3 Active lisinopril (Prinivil; Zestril) 5 MG tablet Take 1 (one) tablet by mouth once daily 3 Active atorvastatin (Lipitor) 80 MG tablet Take 1 (one) tablet by mouth once daily 3 Active benzonatate (Tessalon) 100 MG capsule Take 1 (one) capsule by mouth 3 times daily as needed for cough 3 Active Aspirin Low Dose 81 MG tablet 3 Active Family History Medical History Relation Name Comments Cancer Father Diabetes; unknown type Father CVA Mother High Blood Pressure Mother Relation Name Status Comments Father Mother Social History Tobacco Use Types Packs/Day Years Used Date Smoking Tobacco: Former Cigarettes Q uit: 11/16/2022 Smokeless Tobacco: Never Tobacco Cessation:Counseling Given: No Alcohol Use Standard Drinks/Week Comments Not Currently 0 (1 standard drink = 0.6 oz pur e alcohol) Comments Unknown Sex and Gender Information Value Date Recorded Sex Assigned at Not on file Legal Sex Female 1:34 PM CDT Gender Identity Not on file Sexual Orientation Not on file Last Filed Vital Signs Vital Sign Reading Time Taken Comments Blood Pressure 105/67 05/11/2023 8:16 AM DOG OR HORSE RACING OFFICIAL Pulse 89 05/11/2023 8:16 AM DOG OR HORSE RACING OFFICIAL Temperature 36.6 C (97.9 F) 05/11/2023 8:16 AM DOG OR HORSE RACING OFFICIAL Respiratory Rate 18 05/11/2023 8:16 AM DOG OR HORSE RACING OFFICIAL Oxygen Saturation 94% 05/11/2023 8:16 AM DOG OR HORSE RACING OFFICIAL Inhaled Oxygen Concentration - - Weight 76.2 kg (168 lb) 05/11/2023 8:16 AM DOG OR HORSE RACING OFFICIAL Height 152.4 cm (5') 05/11/2023 8:16 AM DOG OR HORSE RACING OFFICIAL Body Mass Index 32.81 05/11/2023 8:16 AM DOG OR HORSE RACING OFFICIAL Plan of Treatment Health Maintenance Due Date Last Done Comments COLOGUARD (AGES 45-75) - COL ON CA SCREENING 1970 COLON MONITORING 1970 COLONOSCOPY - COLON CA SCREENING 1970 CT COLONOGRAPHY - COLON CA SCREENING 1970 Colorectal Cancer Screening 1970 FIT - COLON CA SCREENING 1970 FLEX SIG - COLON CA SCREENING 1970 MAMMOGRAM 1970 PAP SMEAR 1970 HIV SCREENING 1985 HEPATITIS C SCREENING 09/13/1988 DTAP/TDAP/TD VACCINES (1 - Tdap) 1989 HEPATITIS B VACCINE (1 of 3 - 19+ 3-dose series) 1989 PNEUMOCOCCAL VACCINE 50+ (1 of 1 - PCV) 2020 ZOSTER VACCINE (1 of 2) 2020 SCREENING FOR DIABETES 11/10/2022 COVID-19 VACCINE (1 - 2023-2 5 season) 2023 DEPRESSION SCREENING 04/30/2024 INFLUENZA VACCINE (Season Ended) 2024 HIB VACCINE Aged Out No longer eligi ble based on patient's age to complete this topic HPV VACCINE Aged Out No longer eligi ble based on patient's age to complete this topic MENINGOCOCCAL (Group B) VACC INE SHARED DECISION-MAKING Aged Out No longer eligibl e based on patient's age to complete this topic MENINGOCOCCAL GROUPS A/C/Y/W VACCINE Aged Out No longer eligible b ased on patient's age to complete this topic Insurance [facility] Care Teams Comb Setter Relationship Specialty Start Date End Date Herbert Burch [address] [address] PCP - General 05/15/23
--- OUTSIDE RECORDS SUMMARY | 2024-09-04 09:23 | XMS_ITS | Clinical Summary ---
Author Organization [facility] Address [address] [place] [address] Phone Care Team Providers Care Disk Sharpener Name Role Phone Herbert Burch APRN, CNP Primary Care Provid er Allergies No known active allergies Medications albuterol 108 (90 Base) MCG/ACT Aerosol Solution take 2 Puffs by inhalation every 4 hours as needed. Active HYDROcodone-florecita taminophen (NORCO) 5-325 MG Tablet Take 1 Tablet by mouth every 4 hours as needed. Active omeprazole (PriLOSEC) 20 MG CAPSULE DELAYED RELEASE Take 20 mg by mouth daily. Active predniSONE (DELTASONE) 20 MG Tablet Take 20 mg by mouth daily. Active Social History Tobacco Use Types Packs/Day Years Used Date Smoking Tobacco: Every Day Cigarettes Alcohol Use Standard Drinks/Week Comments Not Currently 0 (1 standard drink = 0.6 oz pur e alcohol) Comments Unknown Sex and Gender Information Value Date Recorded Sex Assigned at Not on file Legal Sex Female 10:10 PM CDT Gender Identity Not on file Sexual Orientation Not on file Plan of Treatment Health Maintenance Due Date Last Done Comments Hepatitis C Virus (HCV) Screening 1970 TdaP Immunization 1970 Pneumococcal Immunization Co mbined (1 of 2 - PCV) 1976 Hepatitis B Immunization (1 of 3 - 19+ 3-dose series) 1989 Pneumococcal Immunization (5 0+ years) (1 of 2 - PCV) 1989 Pap Smear 09/19/1991 Cervical Cancer Screening (CCS) 2000 HPV/Cotest 2000 Colonoscopy 09/19/2015 Colorectal Cancer Screening 09/19/2015 Cologuard 2020 Immunochemical Fecal Occult Blood 2020 Mammogram 2020 Zoster Immunization (1 of 2) 2020 Influenza Immunization (#1) 2023 SARS-COV-2 Immunization (2 - season) 2023 10/28/2020 Respiratory Syncytial Virus (RSV) Immunization (Adult) (1 - 1-dose 75+ series) 2045 Meningococcal Immunization (ACWY) Aged Out No longer eligible based on patient's age to complete this topic Rotavirus Immunization Aged Out No lo nger eligible based on patient's age to complete this topic Insurance MEDICAID [employer] Care Teams Disk Sharpener Relationship Specialty Start Date End Date Herbert Burch APRN, SKIN CARVER PCP - General Advanced Practice Nurse 10/04/22
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
[2024-09-04 11:55] LABS: Alanine Aminotransferase 14 U/L (6-35); Albumin Level 4.1 g/dL (3.5-5.1); Alkaline Phosphatase 122 U/L (38-126); Anion Gap 7 mmol/L (4-12); Aspartate Amino Transferase 24 U/L (14-36); Bilirubin,Total 0.5 mg/dL (0.2-1.3); Blood Urea Nitrogen 9 mg/dL (7-17); Calcium 9.1 mg/dL (8.4-10.2); Carbon Dioxide 28 mmol/L (22-30); Chloride 106 mmol/L (98-107); Estimated Glomerular Filt Rate > 60; Glucose 81 mg/dL (65-110); Potassium 3.5 mmol/L (3.4-5.0); Sodium 141 mmol/L (137-145)
== END 2024-09-04 09:09 | disposition home or self-care (01) ==
PROVIDERS: PCP Nurse Practitioner Family; Visit Provider Surgery
DX: K80.10 Calculus of gallbladder with chronic cholecystitis without obstruction (principal); K21.9 Gastro-esophageal reflux disease without esophagitis
CPT/HCPCS: 36415; 78226; 80053; A9537

== ENCOUNTER 2024-09-09 09:36 | Day surgery (SDC) | payer OTHER, SELFPAY ==
[2024-08-26 08:47] VITALS: BMI 32.7
--- NOTE | ~2024-09-09 | XR_ITS ---
EXAMINATION: XR fluoroscopy no charge DATE: 09/09/2024 10:15 CDT INDICATION: RIGHTWARD C7-T1 INTERLAMINAR EPI STEROID INJ . TECHNIQUE: 3 fluoroscopic images of the cervical spine were obtained during rightward C7-T1 interlami abraham epidural steroid injection with contrast control, performed by Michale Martinez MD. I was not pre sent during the procedure. Fluoroscopy exposure time was 25.1 seconds. Air Kerma 4.80 mGy. COMPARISON: None FINDINGS/IMPRESSION: Fluoroscopic documentation of rightward C7-T1 interlaminar epidural steroid injection with contrast c ontrol. Please refer to the operative note for complete procedural details. Reviewed, dictated and finalized at location K.
--- OUTSIDE RECORDS SUMMARY | 2024-09-09 10:03 | XMS_ITS | Referral Summary ---
Author Organization [facility] [address] [facility] Address [address] [place] [address] Care Team Providers Care [employer] Executive Name Role Phone Herbert Burch NP Unavailable [phone] Sree Lloyd MD Unavailable [phone] Michael Jarrett MD Unavailable [phone] Jessa Cao MD Unavailable [phone] Kavin Cruz PT Unavailable Unavailable Sanam Campos NP Primary Care Provider [phone] Encounters Date Type Department Care Team Description 08/21/2024 8:55 AM CDT Lab [address] [address] 08/21/2024 7:57 AM CDT - 08/21/2024 11:59 PM CDT Hospital Encounter [facility] [address] [place] [address] Encounter for screening mammogram for malignant neoplasm of breast Discharge Disposition: Discharge to home or self care 08/07/2024 7:45 AM CDT Therapy [facility] [address] [place] [address] Moon Jo, PT Unsteadiness on feet (Primary Dx) 08/05/2024 7:45 AM CDT Therapy [facility] [address] [place] [address] Moon Jo, PT Unsteadiness on feet (Primary Dx) 07/31/2024 8:21 AM CDT - 07/31/2024 11:59 PM CDT Hospital Encounter [facility] [address] [place] [address] Postmenopausal bleeding Discharge Disposition: Discharge to home or self care 07/31/2024 8:20 AM CDT - 07/31/2024 11:59 PM CDT Hospital Encounter [facility] [address] [place] [address] Abnormal findings on diagnostic imaging of other abdominal regions, including retroperitoneum Discharge Disposition: Discharge to home or self care 07/29/2024 7:00 AM CDT Therapy [address] [address] Quincy Ace , [employer] Unsteadiness on feet (Primary Dx) 07/24/2024 7:15 AM CDT Therapy [address] [address] Moon Jo, PT Unsteadiness on feet (Primary Dx) 07/21/2024 1:00 PM CDT Therapy [address] [address] Quincy Ace , [employer]IC Unsteadiness on feet (Primary Dx) 07/17/2024 Telephone [facility] G[facility]ology at [address] [place] [address] Rita Sanchez MA 07/17/2024 7:45 AM CDT Therapy [address] [address] Moon Jo, PT Unsteadiness on feet (Primary Dx) from Last 3 Months Allergies No known [...] Not Answered Comments:Is using the patch occasionally [facility] [email or web address] Answer Date Recorded In the past 12 months has e [employer], [employer], oil, or water [employer] threatened to shut off services in your [...] week 03/01/2023 How often do you attend chur ch or scientology services? Never 03/01/2023 Do you belong to any clubs o r organizations such as jew groups, unions, fraternal or athletic groups, or [...] place to sleep or slept in a detention (including now)? No 03/01/2023 Personal Safety Answer [...] on file Legal Sex Female 4:45 PM [employer] Gender Identity Not on file Sexual Orientation Not on file Last Filed Vital Signs Vital Sign Reading Time Taken Comments Blood Pressure 120/72 04/13/2023 3:00 PM [employer] Pulse 84 04/13/2023 3:00 PM [employer] Temperature 35.6 C (96 F) 03/05/2023 7:36 AM [employer] Respiratory Rate 18 04/13/2023 3:00 PM [employer] Oxygen Saturation 95% 03/05/2023 7:36 AM [employer] Inhaled Oxygen Concentration - - Weight 76.7 kg (169 lb) 08/21/2024 8:25 AM CDT Height 149.9 cm (4' 11 ) 08/21/2024 8:25 AM CDT Body Mass Index 34.13 08/21/2024 8:25 AM CDT Plan of Treatment Upcoming Encounters Date Type Department Care Team (Late st Contact Info) Description 01/21/2025 7:30 AM CDT Hospital Encounter [facility] [address] [place] [address] Zane Mckeon, [address] [address] [address] [place] [address] 01/21/2025 7:30 AM CDT - 01/21/2025 8:00 AM CDT Surgery [address] [address] Zane Mckeon, [address] [facility] [address] [place] [address] COLONOSCOPY Scheduled Procedures Name Priority Associated Diagnoses [...] LAB BLOOD ORDERABLES Final Res ult [facility] [address] [facility] Department [place] [address] * (ABNORMAL) Comprehensive metabolic panel (08/21/2024 9:03 AM CDT) Sodium 141 135 - 145 mmol/L Potassium, pl 4.1 3.3 - 4.9 mmol/L [facility]) Comment:Moderately Hemolyzed Specimen. Results may be affected. Chloride 104 97 - 110 mmol/L [facility] CO2 26 22 - 32 mmol/L [facility] Anion gap 12 2 - 15 mmol/L [facility] BUN 8 6 - 25 mg/dL [facility] Creatinine 0.74 0.60 - 1.10 mg/dL [facility] Glucose 87 70 - 199 mg/dL [facility] Comment: Interpretive Data Fasting glucose [...] classification and Diagnosis of Diabetes Diabetes Care 202; 46: S19-S40. Current interpretive data was last [...] Final Res ult [facility]) 1 [facility] [place] [address] * Screening Mammogram Bilateral W Arnie (08/21/2024 [...] by: Shanita Painting M.D. us Ivet Wilkins SHERIFF DEPUTY IMG MAMMO PROCEDURES Final Re sult * [...] Nayeli Keating M.D. LL: CHARLES Report ID: [id number] Reading Location: [id number] Procedure Note Nayeli Keating MD - 08/08/2024 [...] Electronically signed by Nayeli Keating M.D. LL: LL Report ID: [id number] Reading Location: [id number] us Not In File Miscellaneous IMG US [...] be a gallbladder polyp. No positive sonographic Dardanelle sign reported. BILIARY: The common bile duct [...] Nayeli Keating M.D. LL: CHARLES Report ID: [id number] Reading Location: [id number] Procedure Note Nayeli Keating MD - 08/08/2024 [...] may be a gallbladderpolyp. No positive sonographic Dardanelle sign reported. BILIARY: The common bile duct [...] Nayeli Keating M.D. LL: CHARLES Report ID: [id number] Reading Location: [place] [address] us Not In File Miscellaneous IMG US PROCEDURES Luciana l Result from Last 3 Months Insurance [facility] Member Subscriber Plan / Payer (Ef fective 2023-Present) Name:Fariba Lester Relation to Subscriber:Self Name:Fariba Lester Payer ID:[id number] (NAIC) Group ID:Not on file Type:MEDICAID RISK OTHER Address: ATTN: CLAIMS DEPT [address] [place] [phone] [facility] Advance Directives For more information, please contact: [phone] * Full Code (Latest Code Status on File) Date Activated Date Inactivated Comments 02/28/2023 1:49 PM 03/05/2023 3:28 PM Care Teams [employer] Executive Relationship Specialty Start Date End Date Sanam Campos NP [address] [place] [address] PCP - General Nurse Practitioner 08/21/24 Herbert Burch NP [address] [place] [address] Family Medicine 06/15/23 Sree Lloyd MD [address] [place] [address] [address] [place] [address] Consulting Physician Neurology 03/05/23 Michael Jarrett MD [address] [place] [address] [address] [place] [address] Consulting Physician Cardiovascular Disease 03/05/23 Jessa Cao MD [address] [place] [address] [address] [place] [address] Resident Family Medicine 03/05/23 Kavin Cruz, PT Physical Therapist Physical Therapy 06/05/24
--- OUTSIDE RECORDS SUMMARY | 2024-09-09 10:03 | XMS_ITS | Clinical Summary ---
Author Organization [facility] Address [address] [facility] [place] [address] Phone Care Team Providers Care Supervisor Money Room Name Role Phone Herbert Burch APRN, CNP [...] Insurance MEDICAID [employer] Care Teams Supervisor Money Room Relationship Specialty Start Date End Date Herbert Burch APRN, LEAD JAVA DEVELOPER ARCHITECT PCP - General Advanced Practice Nurse 10/04/22
--- OUTSIDE RECORDS SUMMARY | 2024-09-09 10:03 | XMS_ITS | Clinical Summary ---
Author Organization [facility] [address] [facility] Address [address] [place] [address] Care Team Providers Care Farm Equipment Assembler Name Role Phone Herbert Burch NP Unavailable [phone] Sree Lloyd MD Unavailable [phone] Michael Jarrett MD Unavailable [phone] Jessa Cao MD Unavailable [phone] Kavin Cruz PT Unavailable Unavailable Sanam Campos NP Primary Care Provider Allergies No known active allergies Medications nortriptyline [...] Team Description 08/21/2024 8:55 AM CDT Lab [address] [address] 08/21/2024 7:57 AM CDT - 08/21/2024 11:59 PM CDT Hospital Encounter [facility] [address] [place] [address] Encounter for screening mammogram for malignant neoplasm of breast Discharge Disposition: Discharge to home or self care 08/07/2024 7:45 AM CDT Therapy [address] [address] Moon Jo, PT Unsteadiness on feet (Primary Dx) 08/05/2024 7:45 AM CDT Therapy [address] [address] Moon Jo, PT Unsteadiness on feet (Primary Dx) 07/31/2024 8:21 AM CDT - 07/31/2024 11:59 PM CDT Hospital Encounter [address] [address] Postmenopausal bleeding Discharge Disposition: Discharge to home or self care 07/31/2024 8:20 AM CDT - 07/31/2024 11:59 PM CDT Hospital Encounter [address] [address] Abnormal findings on diagnostic imaging of other abdominal regions, including retroperitoneum Discharge Disposition: Discharge to home or self care 07/29/2024 7:00 AM CDT Therapy [address] [address] Quincy Ace , SCRAP CUTTER Unsteadiness on feet (Primary Dx) 07/24/2024 7:15 AM CDT Therapy [address] [address] Moon Jo, PT Unsteadiness on feet (Primary Dx) 07/21/2024 1:00 PM CDT Therapy [address] & [place] [address] Quincy Ace , SCRAP CUTTER Unsteadiness on feet (Primary Dx) 07/17/2024 7:45 AM CDT Therapy [address] [place] [address] Moon Jo, PT Unsteadiness on feet (Primary Dx) 07/17/2024 Telephone [facility] at [address] [place] [address] Rita Sanchez MA from Last 3 Months Surgical History Surgery Date Site/Laterality Comments BACK SURGERY Social History Tobacco Use Types Packs/Day Years Used Date Smoking Tobacco: Every Day Cigarettes 1 36 Smokeless Tobacco: Never Tobacco Cessation:Ready to Q uit: Not Asked; Counseling Given: Not Answered Comments:Is using the patch occasionally [facility] Utilities Answer Date Recorded In the past 12 months has [employer], gas, oil, or water [employer] threatened to shut off services in your [...] 03/01/2023 How often do you attend chur or islam services? Never 03/01/2023 Do you belong to any clubs o r organizations such as quaker groups, unions, fraternal or athletic groups, or [...] place to sleep or slept in a fdc (including now)? No 03/01/2023 Personal Safety Answer [...] on file Legal Sex Female 4:45 PM DISK RECORDIST Gender Identity Not on file Sexual Orientation Not on file Obstetrics History Para Term AB IAB SAB Ectopic Multiple Livin g Live Births 2 2 2 Date Outcome GA Total Labor Labor/2nd/3rd Weight Sex Type Anes PTL Tana A1 A5 Name Clin Term Term Last Filed Vital Signs Vital Sign Reading Time Taken Comments Blood Pressure 120/72 04/13/2023 3:00 PM DISK RECORDIST Pulse 84 04/13/2023 3:00 PM DISK RECORDIST Temperature 35.6 C (96 F) 03/05/2023 7:36 AM DISK RECORDIST Respiratory Rate 18 04/13/2023 3:00 PM DISK RECORDIST Oxygen Saturation 95% 03/05/2023 7:36 AM DISK RECORDIST Inhaled Oxygen Concentration - - Weight 76.7 kg (169 lb) 08/21/2024 8:25 AM CDT Height 149.9 cm (4' 11 ) 08/21/2024 8:25 AM CDT Body Mass Index 34.13 08/21/2024 8:25 AM CDT Plan of Treatment Upcoming Encounters Date Type Department Care Team (Late st Contact Info) Description 01/21/2025 7:30 AM CDT Hospital Encounter [facility] [address] [place] [address] Zane Mckeon, DO [address] [facility] [address] [address] [place] [address] 01/21/2025 7:30 AM CDT - 01/21/2025 8:00 AM CDT Surgery [address] [address] Zane Mckeon, [address] [facility] [address] [place] [address] COLONOSCOPY Scheduled Procedures Name Priority Associated Diagnoses [...] BLOOD ORDERABLES Final Res ult [facility] ([place]) [address] [facility] Department [place] [address] * (ABNORMAL) Comprehensive metabolic panel (08/21/2024 9:03 [...] Unknown LAB BLOOD ORDERABLES Final Res ult [facility] ([facility]) [address] [facility] Department [place] [address] * Screening Mammogram Bilateral W Arnie (08/21/2024 [...] by: Shanita Painting M.D. us Ivet Wilkins DELINQUENCY COUNSELOR IMG MAMMO PROCEDURES Final Re sult * [...] Nayeli Keating M.D. LL: CHARLES Report ID: [id number] Reading Location: [id number] Procedure Note Nayeli Keating MD - 08/08/2024 [...] Nayeli Keating M.D. LL: CHARLES Report ID: [id number] Reading Location: [id number] us Not In File Miscellaneous IMG US [...] be a gallbladder polyp. No positive sonographic Dawn sign reported. BILIARY: The common bile duct [...] Nayeli Keating M.D. LL: CHARLES Report ID: [id number] Reading Location: [id number] Procedure Note Nayeli Keating MD - 08/08/2024 [...] may be a gallbladderpolyp. No positive sonographic Dawn sign reported. BILIARY: The common bile duct [...] Nayeli Keating M.D. LL: CHARLES Report ID: [id number] Reading Location: [id number] us Not In File Miscellaneous IMG US PROCEDURES Luciana l Result from Last 3 Months Insurance [facility] IN [facility] Advance Directives For more information, please contact: [phone] * Full Code (Latest Code Status on File) Date Activated Date Inactivated Comments 02/28/2023 1:49 PM 03/05/2023 3:28 PM Care Teams Farm Equipment Assembler Relationship Specialty Start Date End Date Sanam Campos NP [address] [place] [address] PCP - General Nurse Practitioner 08/21/24 Herbert Burch NP [address] [place] [address] Family Medicine 06/15/23 Sree Lloyd MD [address] [place] [address] [place] [address] Consulting Physician Neurology 03/05/23 Michael Jarrett MD [address] [place] [address] [place] [address] Consulting Physician Cardiovascular Disease 03/05/23 Jessa Cao MD [address] [place] [address] [place] [address] Resident Family Medicine 03/05/23 Kavin Cruz, PT Physical Therapist Physical Therapy 06/05/24
--- OUTSIDE RECORDS SUMMARY | 2024-09-09 10:03 | XMS_ITS | Clinical Summary ---
Author Organization [facility] Address [address] [place] [address] Care Team Providers Care Canine Enforcement Officer Name Role Phone Herbert Burch Primary Care Provider [phone] Source Comments [facility],non-owned Affiliates and Associated Physician Practices is amultiple site organization consisting of ambulatory clinics and hospital sitesin [place], [place], [place] and [place]. This disclosure is being madepursuant to the Care Everywhere program and may not contain all information available regarding this patient. Last updated 18.[facility] Allergies No known active allergies Medications * [...] mouth once daily 3 Active HYDROcodone-ac etaminophen ([place]) 10-325 MG tablet Take 1 (one) tablet [...] Comments Blood Pressure 105/67 05/11/2023 8:16 AM FOREIGN BANKNOTE TELLER Pulse 89 05/11/2023 8:16 AM FOREIGN BANKNOTE TELLER Temperature 36.6 C (97.9 F) 05/11/2023 8:16 AM FOREIGN BANKNOTE TELLER Respiratory Rate 18 05/11/2023 8:16 AM FOREIGN BANKNOTE TELLER Oxygen Saturation 94% 05/11/2023 8:16 AM FOREIGN BANKNOTE TELLER Inhaled Oxygen Concentration - - Weight 76.2 kg (168 lb) 05/11/2023 8:16 AM FOREIGN BANKNOTE TELLER Height 152.4 cm (5') 05/11/2023 8:16 AM FOREIGN BANKNOTE TELLER Body Mass Index 32.81 05/11/2023 8:16 AM FOREIGN BANKNOTE TELLER Plan of Treatment Health Maintenance Due Date [...] patient's age to complete this topic Insurance [facility] Care Teams Canine Enforcement Officer Relationship Specialty Start Date End Date Herbert Burch [address] [address] PCP - General 05/15/23
--- NOTE | 2024-09-09 10:06 | WPDHPUPDATE1 ---
History and Physical Update Update Date/Time: 09/09/24 10:06 History and Physical has been reviewed, including an updated exam of the patient. There are NO changes in the patient's condition. Risks, benefits, and alternatives have been discussed and questions answered. Patient agrees to proceed with procedure.
--- NOTE | 2024-09-09 10:08 | P.OP_ITS ---
Procedure Note - Detailed Date of Procedure 09/09/24 Pre-op Diagnosis Cervical radiculopathy Post-op Diagnosis Same Procedure Performed Rightward Cervical Interlaminar Epidural Steroid Injection at C7-T1 under Fluoroscopic Guidance and with Contrast Control. Surgeon Michael Martinez MD Anesthesia Local Description of Procedure INFORMED CONSENT: Risks, benefits and alternatives to the procedure were discussed in detail with the patient who expressed explicit understanding and consent to proceed. Patient was informed verbally and in written form regarding the risks associated with the procedure including the low risk of serious infection, bleeding/bruising, allergic reaction, nerve or organ injury, paralysis, procedural site pain or discomfort, worsening pain and/or mobility, failure to treat and/or disfigurement. The patient expressed explicit understanding and consent to proceed. All materials required for the procedure were available prior to procedure start. Site and side was marked prior to procedure and confirmed in the presence of the patient. PROCEDURE IN DETAIL: The patient was brought to the procedural suite and placed in the prone position. Patient's head was positioned and stabilized with a ProneView pillow or equivalent. Patient was made comfortable with use of pillows under the chest, hips and ankles. Skin overlying the injection site was prepared broadly with ChloraPrep applicator and draped in a sterile manner. Aseptic technique was employed throughout. The endplates of the vertebral body at the site of interest were aligned in the AP view. Slight caudad tilt and ipsilateral oblique angulation was utilized to optimize visualization of the targeted posterior intervertebral foramen at C7-T1. Local anesthesia was established by infiltration with approximately 5 mL of 2% lidocaine via a 1-1/2 inch 27-gauge needle. A 20-gauge 4-inch Tuohy epidural needle was advanced intermittently until appropriate loss of resistance to air was identified via plastic loss of resistance syringe. Lateral view was used to confirm the appropriate positioning of the needle tip within the posterior epidural space. In the AP view, 2.0 mL of Omnipaque 300 contrast medium was injected after negative aspiration for CSF, blood or other bodily fluid, showing appropriate epidural spread of contrast without evidence of intravascular or intrathecal placement. After negative repeat aspiration for CSF, blood or other bodily fluid, A 4 mL solution containing 6 mg of betamethasone in sterile PF Normal Saline was injected after negative repeat aspiration. Appropriate spread of the injectate was confirmed with washout of previously injected contrast. No parasthesias were elicited. Needle was removed completely intact without difficulty. Images were saved and documented in the patient chart. Patient's skin was cleansed and sterile bandage applied. The patient tolerated the procedure well. The patient was transported to the recovery area in stable condition where they were observed for an appropriate amount of time prior to discharge, without ev idence of complication. The patient was instructed to avoid excessive activity for the next 48 hours, including overhead work, reaching or extended device/computer usage. Showers only for 48 hours. They were instructed not to drive or operate heavy machinery for 24 hours. They are to monitor for severe headaches, fevers, chills, night sweats, erythema/swelling at the site or any other signs of infection, bleeding/bruising, bowel or bladder changes as well as new pain, weakness or numbness in the upper or lower extremity. Should they notice these changes, they are instructed to call our office immediately or report directly to the nearest Emergency Department if no answer or if after posted office hours. CONTRAST WASTED: 28mL Omnipaque 300. Complications No immediate complications Condition Stable Disposition Same day [facility] B[facility] - Charge Forward: Surgery Billing
[2024-09-09 10:12] VITALS: BP 128/94; PULSE 78; RESP 16; TEMP 36.3; O2SAT 96
[2024-09-09 10:21] VITALS: BP 194/94; PULSE 78; RESP 17; O2SAT 95
[2024-09-09 10:25] VITALS: BP 147/79; PULSE 85; RESP 14; O2SAT 94
[2024-09-09] MEDS: BETAMETHASONE SODIUM PHOSPHATE PF INJ 6 MG/ML VIAL INFILTRATE (10:25)
[2024-09-09] MEDS: LIDOCAINE 1% PF INJ 5 ML VIAL 3 ML INFILTRATE (10:26)
[2024-09-09 10:30] VITALS: BP 115/78; PULSE 85; RESP 18; O2SAT 98
== END 2024-09-09 10:44 | disposition home or self-care (01) ==
PROVIDERS: PCP Nurse Practitioner Family; Visit Provider Anesthesiology Pain Medicine
PROC: (CPT 62321; principal; 2024-09-09 11:30)
DX: M54.12 Radiculopathy, cervical region (principal)
CPT/HCPCS: 62321; 99199

== ENCOUNTER 2024-10-02 09:15 | Outpatient (CLI) | payer OTHER, SELFPAY ==
--- OUTSIDE RECORDS SUMMARY | 2024-10-02 09:58 | XMS_ITS | Clinical Summary ---
Author Organization [facility] Address [address] [place] [address] Phone Care Team Providers Care Product Marketing Director Name Role Phone Herbert Burch APRN, CNP [...] Insurance [employer] Care Teams Product Marketing Director Relationship Specialty Start Date End Date Herbert Burch APRN, DATA WAREHOUSE MANAGER PCP - General Advanced Practice Nurse 10/04/22
--- OUTSIDE RECORDS SUMMARY | 2024-10-02 09:58 | XMS_ITS | Referral Summary ---
Author Organization [facility] [place] 163 [facility] Address [address] [facility] [address] [place] [address] Care Team Providers Care Stripper Preliminary Name Role Phone Herbert Burch NP Unavailable [phone] Sree Lloyd MD Unavailable [phone] Michael Jarrett MD Unavailable [phone] Jessa Cao MD Unavailable [phone] Kavin Cruz PT Unavailable Unavailable Sanam Campos NP Primary Care Provider [phone] Encounters Date Type Department Care Team Description 08/21/2024 8:55 AM CDT Lab [address] [address] 08/21/2024 7:57 AM CDT - 08/21/2024 11:59 PM CDT Hospital Encounter [facility] [address] [place] [address] Encounter for screening mammogram for malignant neoplasm of breast Discharge Disposition: Discharge to home or self care 08/07/2024 7:45 AM CDT Therapy [facility] Physical Therapy [address] [place] [address] Moon Jo, PT Unsteadiness on feet (Primary Dx) 08/05/2024 7:45 AM CDT Therapy [facility] [address] [place] [address] Moon Jo, PT Unsteadiness on feet (Primary Dx) 07/31/2024 8:21 AM CDT - 07/31/2024 11:59 PM CDT Hospital Encounter [facility] 1 [place] [address] Postmenopausal bleeding Discharge Disposition: Discharge to home or self care 07/31/2024 8:20 AM CDT - 07/31/2024 11:59 PM CDT Hospital Encounter [facility] 1 [place] [address] Abnormal findings on diagnostic imaging of other abdominal regions, including retroperitoneum Discharge Disposition: Discharge to home or self care 07/29/2024 7:00 AM CDT Therapy [address] [address] Quincy Ace , AUTOMOTIVE GENERAL MANAGER Unsteadiness on feet (Primary Dx) 07/24/2024 7:15 AM CDT Therapy [address] [address] Moon Jo, PT Unsteadiness on feet (Primary Dx) 07/21/2024 1:00 PM CDT Therapy [address] [address] Quincy Ace , AUTOMOTIVE GENERAL MANAGER Unsteadiness on feet (Primary Dx) 07/17/2024 Telephone [facility] Gastroenterology at [address] [place] [address] Rita Sanchez MA 07/17/2024 7:45 AM CDT Therapy [address] [address] Moon Jo, PT Unsteadiness on feet (Primary [...] Not Answered Comments:Is using the patch occasionally [facility] [employer] Answer Date Recorded In the past 12 months has e [employer], [employer] oil, or water [employer] threatened to shut off services in your [...] often do you attend chur ch or episcopalian services? Never 03/01/2023 Do you belong to any clubs o r organizations such as temple groups, unions, fraternal or athletic groups, or [...] place to sleep or slept in a halfway (including now)? No 03/01/2023 Personal Safety Answer [...] on file Legal Sex Female 4:45 PM FORK TRUCK DRIVER Gender Identity Not on file Sexual Orientation Not on file Last Filed Vital Signs Vital Sign Reading Time Taken Comments Blood Pressure 120/72 04/13/2023 3:00 PM FORK TRUCK DRIVER Pulse 84 04/13/2023 3:00 PM FORK TRUCK DRIVER Temperature 35.6 C (96 F) 03/05/2023 7:36 AM FORK TRUCK DRIVER Respiratory Rate 18 04/13/2023 3:00 PM FORK TRUCK DRIVER Oxygen Saturation 95% 03/05/2023 7:36 AM FORK TRUCK DRIVER Inhaled Oxygen Concentration - - Weight 76.7 kg (169 lb) 08/21/2024 8:25 AM CDT Height 149.9 cm (4' 11) 08/21/2024 8:25 AM CDT Body Mass Index 34.13 08/21/2024 8:25 AM CDT Plan of Treatment Upcoming Encounters Date Type Department Care Team (Late st Contact Info) Description 01/21/2025 7:30 AM CDT Hospital Encounter [facility] [address] [place] [address] Zane Mckeon, [address] [facility] [address] [place] [address] 01/21/2025 7:30 AM CDT - 01/21/2025 8:00 AM CDT Surgery [address] [address] Zane Mckeon, [address] [facility] [address] [place] [address] COLONOSCOPY Scheduled Procedures Name Priority Associated Diagnoses [...] LAB BLOOD ORDERABLES Final Res ult [facility] 1 [facility] Department [place] [address] * (ABNORMAL) Comprehensive metabolic panel (08/21/2024 9:03 AM CDT) Sodium 141 135 - 145 mmol/L Potassium, pl 4.1 3.3 - 4.9 mmol/L [facility] ([facility]) Comment:Moderately Hemolyzed Specimen. Results may be affected. Chloride 104 97 - 110 mmol/L [facility] ([place]) CO2 26 22 - 32 mmol/L [facility]) Anion gap 12 2 - 15 mmol/L [facility] BUN 8 6 - 25 mg/dL [facility] Creatinine 0.74 0.60 - 1.10 mg/dL [facility]) Glucose 87 70 - 199 mg/dL [facility] Comment: Interpretive Data [...] Res ult [facility] ([place]) 1 [facility] Department [place] [address] * Screening Mammogram Bilateral W Arnie (08/21/2024 [...] by: Shanita Painting M.D. us Ivet Wilkins SOLUTION SPECIALIST IMG MAMMO PROCEDURES Final Re sult * [...] Nayeli Keating M.D. LL: CHARLES Report ID: [id number] Reading Location: [id number] Procedure Note Nayeli Keating MD - 08/08/2024 [...] Nayeli Keating M.D. LL: LL Report ID: [id number] Reading Location: [id number] us Not In File Miscellaneous IMG US [...] be a gallbladder polyp. No positive sonographic Jasper sign reported. BILIARY: The common bile duct [...] Nayeli Keating M.D. LL: CHARLES Report ID: [id number] Reading Location: [id number] Procedure Note Nayeli Keating MD - 08/08/2024 [...] may be a gallbladderpolyp. No positive sonographic Jasper sign reported. BILIARY: The common bile duct [...] Nayeli Keating M.D. LL: CHARLES Report ID: [id number] Reading Location: [place] [address] us Not In File Miscellaneous IMG US PROCEDURES Luciana l Result from Last 3 Months Insurance [facility] Member Subscriber Plan / Payer (Ef fective 2023-Present) Name:Fariba Lester Relation to Subscriber:Self Name:Fariba Lester Payer ID:[id number] (NAIC) Group ID:Not on file Type:MEDICAID RISK OTHER Address: ATTN: CLAIMS DEPT [address] [place] [id number] [facility] Advance Directives For more information, please contact: [phone] * Full Code (Latest Code Status on File) Date Activated Date Inactivated Comments 02/28/2023 1:49 PM 03/05/2023 3:28 PM Care Teams Stripper Preliminary Relationship Specialty Start Date End Date Sanam Campos NP [address] [place] [address] PCP - General Nurse Practitioner 08/21/24 Herbert Burch NP [address] [place] [address] Family Medicine 06/15/23 Sree Lloyd MD [address] [place] [address] [address] [place] [address] Consulting Physician Neurology 03/05/23 Michael Jarrett MD [address] [place] [address] [address] [place] [address] Consulting Physician Cardiovascular Disease 03/05/23 Jessa Cao MD [address] [place] [address] [address] [place] [address] Resident Family Medicine 03/05/23 Kavin Cruz, PT Physical Therapist Physical Therapy 06/05/24
--- OUTSIDE RECORDS SUMMARY | 2024-10-02 09:58 | XMS_ITS | Clinical Summary ---
Author Organization [facility] [place] 163 [facility] Address [address] [place] [address] Care Team Providers Care Glass Block Bender Name Role Phone Herbert Burch NP Unavailable [phone] Sree Lloyd MD Unavailable [phone] Michael Jarrett MD Unavailable [phone] Jessa Cao MD Unavailable [phone] Kavin Cruz PT Unavailable Unavailable Sanam Campos NP Primary Care Provider [phone] Allergies No known active allergies Medications nortriptyline [...] Team Description 08/21/2024 8:55 AM CDT Lab [address] [address] 08/21/2024 7:57 AM CDT - 08/21/2024 11:59 PM CDT Hospital Encounter [facility] [address] [place] [address] Encounter for screening mammogram for malignant neoplasm of breast Discharge Disposition: Discharge to home or self care 08/07/2024 7:45 AM CDT Therapy [address] [address] Moon Jo, PT Unsteadiness on feet (Primary Dx) 08/05/2024 7:45 AM CDT Therapy [address] [address] Moon Jo, PT Unsteadiness on feet (Primary Dx) 07/31/2024 8:21 AM CDT - 07/31/2024 11:59 PM CDT Hospital Encounter [address] [address] Postmenopausal bleeding Discharge Disposition: Discharge to home or self care 07/31/2024 8:20 AM CDT - 07/31/2024 11:59 PM CDT Hospital Encounter [address] [address] Abnormal findings on diagnostic imaging of other abdominal regions, including retroperitoneum Discharge Disposition: Discharge to home or self care 07/29/2024 7:00 AM CDT Therapy [address] [address] Quincy Ace , PERSONAL BANKING ASSISTANT Unsteadiness on feet (Primary Dx) 07/24/2024 7:15 AM CDT Therapy [address] [address] Moon Jo, PT Unsteadiness on feet (Primary Dx) 07/21/2024 1:00 PM CDT Therapy [address] & [place] [address] Quincy Ace , PERSONAL BANKING ASSISTANT Unsteadiness on feet (Primary Dx) 07/17/2024 7:45 AM CDT Therapy [address] [place] [address] Moon Jo, PT Unsteadiness on feet (Primary Dx) 07/17/2024 Telephone [facility] Gastroenterology at [address] [place] [address] Rita Sanchez MA from Last 3 Months Surgical History Surgery Date Site/Laterality Comments BACK SURGERY Social History Tobacco Use Types Packs/Day Years Used Date Smoking Tobacco: Every Day Cigarettes 1 36 Smokeless Tobacco: Never Tobacco Cessation:Ready to Q uit: Not Asked; Counseling Given: Not Answered Comments:Is using the patch occasionally [facility] Utilities Answer Date Recorded In the past 12 months has [employer], gas, oil, or water [employer] threatened to shut off services in your [...] How often do you attend chur or sikhism services? Never 03/01/2023 Do you belong to any clubs o r organizations such as buddhist groups, unions, fraternal or athletic groups, or [...] on file Legal Sex Female 4:45 PM ENGINEERED WOOD DESIGNER Gender Identity Not on file Sexual Orientation Not on file Obstetrics History Para Term AB IAB SAB Ectopic Multiple Livin g Live Births 2 2 2 Date Outcome GA Total Labor Labor/2nd/3rd Weight Sex Type Anes PTL Tana A1 A5 Name Clin Term Term Last Filed Vital Signs Vital Sign Reading Time Taken Comments Blood Pressure 120/72 04/13/2023 3:00 PM ENGINEERED WOOD DESIGNER Pulse 84 04/13/2023 3:00 PM ENGINEERED WOOD DESIGNER Temperature 35.6 C (96 F) 03/05/2023 7:36 AM ENGINEERED WOOD DESIGNER Respiratory Rate 18 04/13/2023 3:00 PM ENGINEERED WOOD DESIGNER Oxygen Saturation 95% 03/05/2023 7:36 AM ENGINEERED WOOD DESIGNER Inhaled Oxygen Concentration - - Weight 76.7 kg (169 lb) 08/21/2024 8:25 AM CDT Height 149.9 cm (4' 11) 08/21/2024 8:25 AM CDT Body Mass Index 34.13 08/21/2024 8:25 AM CDT Plan of Treatment Upcoming Encounters Date Type Department Care Team (Late st Contact Info) Description 01/21/2025 7:30 AM CDT Hospital Encounter [facility] 1 [place] [address] Zane Mckeon, DO [address] [facility] [address] [place] [address] 01/21/2025 7:30 AM CDT - 01/21/2025 8:00 AM CDT Surgery [address] [address] Zane Mckeon, [address] [facility] [address] [place] [address] COLONOSCOPY Scheduled Procedures Name Priority Associated Diagnoses [...] BLOOD ORDERABLES Final Res ult BRUNA ENG ([place]) 1 [facility] Department [place] [address] * (ABNORMAL) Comprehensive metabolic panel (08/21/2024 9:03 AM CDT) Sodium 141 135 - 145 mmol/L Potassium, pl 4.1 3.3 - 4.9 mmol/L [facility] ([facility]) Comment:Moderately Hemolyzed Specimen. Results may be affected. Chloride 104 97 - 110 mmol/L [facility] ([place]) CO2 26 22 - 32 mmol/L [facility] ([facility]) Anion gap 12 2 - 15 mmol/L [...] Unknown LAB BLOOD ORDERABLES Final Res ult [facility] 1 [facility] Department [place] [address] * Screening Mammogram Bilateral W Arnie (08/21/2024 [...] by: Shanita Painting M.D. us Ivet Wilkins CONSTRUCTION ASSISTANT IMG MAMMO PROCEDURES Final Re sult * [...] Nayeli Keating M.D. LL: CHARLES Report ID: [id number] Reading Location: [id number] Procedure Note Nayeli Keating MD - 08/08/2024 [...] Nayeli Keating M.D. LL: CHARLES Report ID: [id number] Reading Location: [id number] us Not In File Miscellaneous IMG US [...] be a gallbladder polyp. No positive sonographic Culloden sign reported. BILIARY: The common bile duct [...] Nayeli Keating M.D. LL: CHARLES Report ID: [id number] Reading Location: [id number] Procedure Note Nayeli Keating MD - 08/08/2024 [...] may be a gallbladderpolyp. No positive sonographic Culloden sign reported. BILIARY: The common bile duct [...] Nayeli Keating M.D. LL: CHARLES Report ID: [id number] Reading Location: [id number] us Not In File Miscellaneous IMG US PROCEDURES Luciana l Result from Last 3 Months Insurance [facility] Advance Directives For more information, please contact: [phone] * Full Code (Latest Code Status on File) Date Activated Date Inactivated Comments 02/28/2023 1:49 PM 03/05/2023 3:28 PM Care Teams Glass Block Bender Relationship Specialty Start Date End Date Sanam Campos NP [address] [place] [address] PCP - General Nurse Practitioner 08/21/24 Herbert Burch NP [address] [place] [address] Family Medicine 06/15/23 Sree Lloyd MD [address] [place] [address] [place] [address] Consulting Physician Neurology 03/05/23 Michael Jarrett MD [address] [place] [address] [place] [address] Consulting Physician Cardiovascular Disease 03/05/23 Jessa Cao MD [address] [place] [address] [place] [address] Resident Family Medicine 03/05/23 Kavin Cruz, PT Physical Therapist Physical Therapy 06/05/24
--- OUTSIDE RECORDS SUMMARY | 2024-10-02 09:58 | XMS_ITS | Clinical Summary ---
Author Organization [facility] Address [address] [place] [address] Care Team Providers Care Bottling Equipment Sales Representative Name Role Phone Herbert Burch Primary Care Provider [phone] Source Comments [facility],non-owned Affiliates and Associated Physician Practices is amultiple site organization consisting of ambulatory clinics and hospital sitesin [place], [place], [place] and [place]. This disclosure is being madepursuant to the Care Everywhere program and may not contain all information available regarding this patient. Last updated 18.[facility] Allergies No known active allergies Medications * [...] mouth once daily 3 Active HYDROcodone-ac etaminophen (Macon) 10-325 MG tablet Take 1 (one) tablet [...] Comments Blood Pressure 105/67 05/11/2023 8:16 AM WHITE WORK CLEANER Pulse 89 05/11/2023 8:16 AM WHITE WORK CLEANER Temperature 36.6 C (97.9 F) 05/11/2023 8:16 AM WHITE WORK CLEANER Respiratory Rate 18 05/11/2023 8:16 AM WHITE WORK CLEANER Oxygen Saturation 94% 05/11/2023 8:16 AM WHITE WORK CLEANER Inhaled Oxygen Concentration - - Weight 76.2 kg (168 lb) 05/11/2023 8:16 AM WHITE WORK CLEANER Height 152.4 cm (5') 05/11/2023 8:16 AM WHITE WORK CLEANER Body Mass Index 32.81 05/11/2023 8:16 AM WHITE WORK CLEANER Plan of Treatment Health Maintenance Due Date [...] to complete this topic Insurance [facility] Care Teams Bottling Equipment Sales Representative Relationship Specialty Start Date End Date Herbert Burch [address] [address] PCP - General 05/15/23
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
[2024-10-02 10:26] LABS: Alanine Aminotransferase 17 U/L (6-35); Albumin Level 3.9 g/dL (3.5-5.1); Alkaline Phosphatase 115 U/L (38-126); Amylase 100 U/L (30-110); Aspartate Amino Transferase 25 U/L (14-36); Bilirubin Direct 0.1 mg/dL (0-0.3); Bilirubin,Total 0.3 mg/dL (0.2-1.3); Lipase 42 U/L (23-300); Total Protein 6.9 g/dL (6.3-8.2)
== END 2024-10-02 09:16 | disposition home or self-care (01) ==
LOC: ANHSURGERY 09:20
PROVIDERS: PCP Nurse Practitioner Family; Visit Provider Surgery
DX: Z01.818 Encounter for other preprocedural examination (principal); K81.1 Chronic cholecystitis
CPT/HCPCS: 36415; 80076; 82150; 83690

== ENCOUNTER 2024-10-08 01:04 | Day surgery (SDC) | payer OTHER, SELFPAY ==
[2024-10-01 13:56] VITALS: BMI 32.3
--- NOTE | 2024-10-01 14:16 | PC.NURSE ---
Report to the Outpatient Waiting Room, entrance under the green pavilion located off [facility], at time __1100am on date ___10/08/24____. Planned Procedure Time: ___1;00pm .? Time changes happen often and if your time is changed the preop area will call you the afternoon before. - You and your visitor will be asked to self-screen and do not enter if you have any COVID symptoms. Please call surgeon if you need to reschedule. - A mask is optional within the hospital at this time. Patients may have clear liquids (water, carbonated beverages, clear teas, apple juice) until 3 hours prior to surgery with a maximum of 20 ounces. - No food from midnight until time of surgery and no smoking, or chewing tobacco (or any form of nicotine). No chewing gum, candy or mints. ( 1000am) - Take only the following medications with a SIP of water on the morning of surgery: _Duloxetine and Nortriptyline and Inhalers DO NOT STOP ANY OF YOUR OTHER PRESCRIPTION MEDICATIONS PRIOR TO SURGERY EXCEPT THE FOLLOWING Hold all vitamins and supplements for 3 days per anesthesiologist.Date of last dose is 10/04/24 Medications to discontinue per physician None Date to take last dose___None Please no make-up, nail tajik, hairspray, perfume, deodorant, or body powder the day of surgery.? No jewelry (including any body piercings) or valuables the day of surgery, leave them at home.? Please take a shower or bath the night before, or the morning of, surgery with an antibacterial soap.? Wear comfortable, loose fitting clothing.? Bring the SPINAL CORD STIMULATOR remove with. - Jewelry must be removed prior to entering the operating room.? Rings and piercings that are not removed may be cut off. - The hospital will not accept responsibility for valuables.? - Please leave all valuables, including medications, at home the day of surgery. If you are going home after surgery, a licensed driver manager must drive you home.? - NO public transportation without another adult if you receive anesthesia. - We recommend that an adult stay with you for 24 hours following discharge. - We also recommend that you do not drive, make important decision, drink alcoholic beverages, or take any drugs that were not prescribed by your health care provider for at least 24 hours after your discharge time. Follow any additional instructions given to you from your surgeon. Telephone instructions given to ___Patient and asked if any additional questions and then verbalized understanding. Patient advised to call surgeon office or pre surgery nurse liaison [phone] if any additional questions.
[2024-10-08] VITALS (10 sets, daily range): BP systolic 108–130; BP diastolic 53–92; PULSE 83–99; RESP 16–20; TEMP 36.4–36.9; O2SAT 93–100
--- OUTSIDE RECORDS SUMMARY | 2024-10-08 01:07 | XMS_ITS | Clinical Summary ---
Author Organization [facility] Address [address] [place] [address] Phone Care Team Providers Care Revenue Integrity Analyst Name Role Phone Herbert Burch APRN, CNP [...] Insurance MEDICAID [employer] Care Teams Revenue Integrity Analyst Relationship Specialty Start Date End Date Herbert Burch APRN, ROUTER OPERATOR RADIAL PCP - General Advanced Practice Nurse 10/04/22
--- OUTSIDE RECORDS SUMMARY | 2024-10-08 01:07 | XMS_ITS | Referral Summary ---
Author Organization [facility] [address] [facility] Address [address] [place] [address] Care Team Providers Care Information Tech Name Role Phone Herbert Burch NP Unavailable [phone] Sree Lloyd MD Unavailable [phone] Michael Jarrett MD Unavailable [phone] Jessa Cao MD Unavailable [phone] Kavin Cruz PT Unavailable Unavailable Sanam Campos NP Primary Care Provider [phone] Encounters Date Type Department Care Team Description 08/21/2024 8:55 AM CDT Lab [address] [address] 08/21/2024 7:57 AM CDT - 08/21/2024 11:59 PM CDT Hospital Encounter [facility] [address] [place] [address] Encounter for screening mammogram for malignant neoplasm of breast Discharge Disposition: Discharge to home or self care 08/07/2024 7:45 AM CDT Therapy [facility] [address] [place] [address] Moon Jo, PT Unsteadiness on feet (Primary Dx) 08/05/2024 7:45 AM CDT Therapy [facility] [address] [place] [address] Moon Jo, PT Unsteadiness on feet (Primary Dx) 07/31/2024 8:21 AM CDT - 07/31/2024 11:59 PM CDT Hospital Encounter [facility] [address] [place] [address] Postmenopausal bleeding Discharge Disposition: Discharge to home or self care 07/31/2024 8:20 AM CDT - 07/31/2024 11:59 PM CDT Hospital Encounter [facility] 1 [place] [address] Abnormal findings on diagnostic imaging of other abdominal regions, including retroperitoneum Discharge Disposition: Discharge to home or self care 07/29/2024 7:00 AM CDT Therapy [address] [address] Quincy Ace , PROGRESSIVE CARE MANAGER Unsteadiness on feet (Primary Dx) 07/24/2024 7:15 AM CDT Therapy [address] [address] Moon Jo, PT Unsteadiness on feet (Primary Dx) 07/21/2024 1:00 PM CDT Therapy [address] [address] Quincy Ace , PROGRESSIVE CARE MANAGER Unsteadiness on feet (Primary Dx) 07/17/2024 Telephone [facility] Gastroenterology at [address] [place] [address] Rita Sanchez MA 07/17/2024 7:45 AM CDT Therapy [address] [address] Moon Jo, PT Unsteadiness on feet (Primary [...] Not Answered Comments:Is using the patch occasionally [facility] [employer] Answer Date Recorded In the past 12 months has e [employer], [employer], oil, or water [employer] threatened to shut off services in your [...] often do you attend chur ch or buddhist services? Never 03/01/2023 Do you belong to any clubs o r organizations such as caodaism groups, unions, fraternal or athletic groups, or [...] place to sleep or slept in a long-term (including now)? No 03/01/2023 Personal Safety Answer [...] on file Legal Sex Female 4:45 PM FORMULA WEIGHER Gender Identity Not on file Sexual Orientation Not on file Last Filed Vital Signs Vital Sign Reading Time Taken Comments Blood Pressure 120/72 04/13/2023 3:00 PM FORMULA WEIGHER Pulse 84 04/13/2023 3:00 PM FORMULA WEIGHER Temperature 35.6 C (96 F) 03/05/2023 7:36 AM FORMULA WEIGHER Respiratory Rate 18 04/13/2023 3:00 PM FORMULA WEIGHER Oxygen Saturation 95% 03/05/2023 7:36 AM FORMULA WEIGHER Inhaled Oxygen Concentration - - Weight 76.7 kg (169 lb) 08/21/2024 8:25 AM CDT Height 149.9 cm (4' 11) 08/21/2024 8:25 AM CDT Body Mass Index 34.13 08/21/2024 8:25 AM CDT Plan of Treatment Upcoming Encounters Date Type Department Care Team (Late st Contact Info) Description 01/21/2025 7:30 AM CDT Hospital Encounter [facility] 1 [place] [address] Zane Mckeon, [address] [place] [address] 01/21/2025 7:30 AM CDT - 01/21/2025 8:00 AM CDT Surgery [address] [address] Zane Mckeon, [address] [place] [address] COLONOSCOPY Scheduled Procedures Name Priority Associated Diagnoses [...] LAB BLOOD ORDERABLES Final Res ult [facility] 1 [facility] Department [place] [address] * (ABNORMAL) Comprehensive metabolic panel (08/21/2024 9:03 AM CDT) Sodium 141 135 - 145 mmol/L Potassium, pl 4.1 3.3 - 4.9 mmol/L [facility]) Comment:Moderately Hemolyzed Specimen. Results may be affected. Chloride 104 97 - 110 mmol/L [facility] CO2 26 22 - 32 mmol/L [facility] Anion gap 12 2 - 15 mmol/L [facility] BUN 8 6 - 25 mg/dL [facility] Creatinine 0.74 0.60 - 1.10 mg/dL [facility] Glucose 87 70 - 199 mg/dL [facility] Comment: Interpretive Data [...] Final Res ult [facility] ([place]) 1 [facility] Department [place] [address] * Screening Mammogram Bilateral W Arnie (08/21/2024 [...] by: Shanita Painting M.D. us Ivet Wilkins MIDDLE SCHOOL COUNSELOR IMG MAMMO PROCEDURES Final Re sult [...] Nayeli Keating M.D. LL: CHARLES Report ID: [id number] Reading Location: [id number] Procedure Note Nayeli Keating MD - 08/08/2024 [...] Nayeli Keating M.D. LL: LL Report ID: [id number] Reading Location: [id number] us Not In File Miscellaneous IMG US [...] be a gallbladder polyp. No positive sonographic [place] sign reported. BILIARY: The common bile duct [...] Nayeli Keating M.D. LL: CHARLES Report ID: [id number] Reading Location: [id number] Procedure Note Nayeli Keating MD - 08/08/2024 [...] may be a gallbladderpolyp. No positive sonographic [place] sign reported. BILIARY: The common bile duct [...] Nayeli Keating M.D. LL: CHARLES Report ID: [id number] Reading Location: [place] [address] us Not In File Miscellaneous IMG US PROCEDURES Luciana l Result from Last 3 Months Insurance [facility] Member Subscriber Plan / Payer (Ef fective 2023-Present) Name:Fariba Lester Relation to Subscriber:Self Name:Fariba Lester Payer ID:[id number] (NAIC) Group ID:Not on file Type:MEDICAID RISK OTHER Address: ATTN: CLAIMS DEPT [address] [place] [phone] [facility] Advance Directives For more information, please contact: [phone] * Full Code (Latest Code Status on File) Date Activated Date Inactivated Comments 02/28/2023 1:49 PM 03/05/2023 3:28 PM Care Teams Information Tech Relationship Specialty Start Date End Date Sanam Campos NP [address] [place] [address] PCP - General Nurse Practitioner 08/21/24 Herbert Burch NP [address] [place] [address] Family Medicine 06/15/23 Sree Lloyd MD [address] [place] [address] [address] [place] [address] Consulting Physician Neurology 03/05/23 Michael Jarrett MD [address] [place] [address] [address] [place] [address] Consulting Physician Cardiovascular Disease 03/05/23 Jessa Cao MD [address] [place] [address] [address] [place] [address] Resident Family Medicine 03/05/23 Kavin Cruz, PT Physical Therapist Physical Therapy 06/05/24
--- OUTSIDE RECORDS SUMMARY | 2024-10-08 01:07 | XMS_ITS | Clinical Summary ---
Author Organization [facility] Address [address] [place] [address] Care Team Providers Care Machine Assembler For Puller Over Name Role Phone Herbert Burch Primary Care Provider [phone] Source Comments [facility],non-owned Affiliates and Associated Physician Practices is amultiple site organization consisting of ambulatory clinics and hospital sitesin [place], [place], [place] and [place]. This disclosure is being madepursuant to the Care Everywhere program and may not contain all information available regarding this patient. Last updated 18.[facility] Allergies No known active allergies Medications * [...] mouth once daily 3 Active HYDROcodone-ac etaminophen ([place]) 10-325 MG tablet Take 1 (one) tablet [...] Comments Blood Pressure 105/67 05/11/2023 8:16 AM FUR DRY CLEANER Pulse 89 05/11/2023 8:16 AM FUR DRY CLEANER Temperature 36.6 C (97.9 F) 05/11/2023 8:16 AM FUR DRY CLEANER Respiratory Rate 18 05/11/2023 8:16 AM FUR DRY CLEANER Oxygen Saturation 94% 05/11/2023 8:16 AM FUR DRY CLEANER Inhaled Oxygen Concentration - - Weight 76.2 kg (168 lb) 05/11/2023 8:16 AM FUR DRY CLEANER Height 152.4 cm (5') 05/11/2023 8:16 AM FUR DRY CLEANER Body Mass Index 32.81 05/11/2023 8:16 AM FUR DRY CLEANER Plan of Treatment Health Maintenance Due [...] 2020 ZOSTER VACCINE (1 of 2) 2020 COVID-19 VACCINE (1 - 2023-2 5 season) 2023 DEPRESSION SCREENING 04/30/2024 INFLUENZA VACCINE (Season Ended) 2024 SCREENING FOR DIABETES 03/02/2026 , 09/23/2022, 09/23/2022 HIB VACCINE Aged Out No longer eligi ble based on patient's age to complete this topic HPV VACCINE Aged Out No longer eligi ble based on patient's age to complete this topic MENINGOCOCCAL (Group B) VACCINE SHARED DECISION-MAKING Aged Out No longer eligible based on patient's age to complete this topic MENINGOCOCCAL GROUPS A/C/Y/W VACCINE Aged Out No longer eligible b ased on patient's age to complete this topic Insurance [employer] Care Teams Machine Assembler For Puller Over Relationship Specialty Start Date End Date Herbert Burch [address] [address] PCP - General 05/15/23
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
--- OUTSIDE RECORDS SUMMARY | 2024-10-08 01:07 | XMS_ITS | Clinical Summary ---
Author Organization [facility] [address] [facility] Address [address] [place] [address] Care Team Providers Care Director Of Outside Sales Name Role Phone Herebrt Burch NP Unavailable [phone] Sree Lloyd MD Unavailable [phone] Michael Jarrett MD Unavailable [phone] Jessa Cao MD Unavailable [phone] Kavin Cruz PT Unavailable Unavailable Sanam Campos NP Primary Care Provider [phone] Allergies No known active allergies Medications nortriptyline [...] Team Description 08/21/2024 8:55 AM CDT Lab [address] [address] 08/21/2024 7:57 AM CDT - 08/21/2024 11:59 PM CDT Hospital Encounter [facility] [address] [place] [address] Encounter for screening mammogram for malignant neoplasm of breast Discharge Disposition: Discharge to home or self care 08/07/2024 7:45 AM CDT Therapy [address] [address] Moon Jo, PT Unsteadiness on feet (Primary Dx) 08/05/2024 7:45 AM CDT Therapy [address] [address] Moon Jo, PT Unsteadiness on feet (Primary Dx) 07/31/2024 8:21 AM CDT - 07/31/2024 11:59 PM CDT Hospital Encounter [address] [address] Postmenopausal bleeding Discharge Disposition: Discharge to home or self care 07/31/2024 8:20 AM CDT - 07/31/2024 11:59 PM CDT Hospital Encounter [address] [address] Abnormal findings on diagnostic imaging of other abdominal regions, including retroperitoneum Discharge Disposition: Discharge to home or self care 07/29/2024 7:00 AM CDT Therapy [address] [address] Quincy Ace , DETECTIVE BUREAU CHIEF Unsteadiness on feet (Primary Dx) 07/24/2024 7:15 AM CDT Therapy [address] [address] Moon Jo, PT Unsteadiness on feet (Primary Dx) 07/21/2024 1:00 PM CDT Therapy [address] & [place] [address] Quincy Ace , DETECTIVE BUREAU CHIEF Unsteadiness on feet (Primary Dx) 07/17/2024 7:45 AM CDT Therapy [address] [place] [address] Moon Jo, PT Unsteadiness on feet (Primary Dx) 07/17/2024 Telephone [facility] Gastroenterology at [address] [place] [address] Rita Sanchez MA from Last 3 Months Surgical History Surgery Date Site/Laterality Comments BACK SURGERY Social History Tobacco Use Types Packs/Day Years Used Date Smoking Tobacco: Every Day Cigarettes 1 36 Smokeless Tobacco: Never Tobacco Cessation:Ready to Q uit: Not Asked; Counseling Given: Not Answered Comments:Is using the patch occasionally [facility] Utilities Answer Date Recorded In the past 12 months has [employer] gas, oil, or water [employer] threatened to shut off services in your [...] How often do you attend chur or nondenominational services? Never 03/01/2023 Do you belong to any clubs o r organizations such as mormonism groups, unions, fraternal or athletic groups, or [...] place to sleep or slept in a senior living (including now)? No 03/01/2023 Personal Safety Answer [...] on file Legal Sex Female 4:45 PM HONEY LIQUEFIER Gender Identity Not on file Sexual Orientation Not on file Obstetrics History Para Term AB IAB SAB Ectopic Multiple Livin g Live Births 2 2 2 Date Outcome GA Total Labor Labor/2nd/3rd Weight Sex Type Anes PTL Tana A1 A5 Name Clin Term Term Last Filed Vital Signs Vital Sign Reading Time Taken Comments Blood Pressure 120/72 04/13/2023 3:00 PM HONEY LIQUEFIER Pulse 84 04/13/2023 3:00 PM HONEY LIQUEFIER Temperature 35.6 C (96 F) 03/05/2023 7:36 AM HONEY LIQUEFIER Respiratory Rate 18 04/13/2023 3:00 PM HONEY LIQUEFIER Oxygen Saturation 95% 03/05/2023 7:36 AM HONEY LIQUEFIER Inhaled Oxygen Concentration - - Weight 76.7 kg (169 lb) 08/21/2024 8:25 AM CDT Height 149.9 cm (4' 11) 08/21/2024 8:25 AM CDT Body Mass Index 34.13 08/21/2024 8:25 AM CDT Plan of Treatment Upcoming Encounters Date Type Department Care Team (Late st Contact Info) Description 01/21/2025 7:30 AM CDT Hospital Encounter [facility] 1 [place] [address] Zane Mckeon, DO [address] [place] [address] 01/21/2025 7:30 AM CDT - 01/21/2025 8:00 AM CDT Surgery [address] [address] Zane Mckeon, [address] [place] [address] COLONOSCOPY Scheduled Procedures Name Priority Associated Diagnoses [...] BLOOD ORDERABLES Final Res ult [facility]) 1 [facility] Department [place] [address] * (ABNORMAL) Comprehensive metabolic panel [...] Unknown LAB BLOOD ORDERABLES Final Res ult [facility] 1 [facility] Department [place] [address] * Screening Mammogram Bilateral W Arnie (08/21/2024 [...] by: Shanita Painting M.D. us Ivet Wilkins EARLY CHILDHOOD WORKER IMG MAMMO PROCEDURES Final Re sult * [...] Nayeli Keating M.D. LL: CHARLES Report ID: [id number] Reading Location: [id number] Procedure Note Nayeli Keating MD - 08/08/2024 [...] Nayeli Keating M.D. LL: CHARLES Report ID: [id number] Reading Location: [id number] us Not In File Miscellaneous IMG US [...] be a gallbladder polyp. No positive sonographic [place] sign reported. BILIARY: The common bile duct [...] Nayeli Keating M.D. LL: CHARLES Report ID: [id number] Reading Location: [id number] Procedure Note Nayeli Keating MD - 08/08/2024 [...] may be a gallbladderpolyp. No positive sonographic [place] sign reported. BILIARY: The common bile duct [...] Nayeli Keating M.D. LL: CHARLES Report ID: [id number] Reading Location: [id number] us Not In File Miscellaneous IMG US PROCEDURES Luciana l Result from Last 3 Months Insurance [facility] Advance Directives For more information, please contact: [phone] * Full Code (Latest Code Status on File) Date Activated Date Inactivated Comments 02/28/2023 1:49 PM 03/05/2023 3:28 PM Care Teams Director Of Outside Sales Relationship Specialty Start Date End Date Sanam Campos NP [address] [place] [address] PCP - General Nurse Practitioner 08/21/24 Herbert Burch NP [address] [place] [address] Family Medicine 06/15/23 Sree Lloyd MD [address] [place] [address] [place] [address] Consulting Physician Neurology 03/05/23 Michael Jarrett MD [address] [place] [address] [place] [address] Consulting Physician Cardiovascular Disease 03/05/23 Jessa Cao MD [address] [place] [address] [place] [address] Resident Family Medicine 03/05/23 Kavin Cruz, PT Physical Therapist Physical Therapy 06/05/24
--- NOTE | 2024-10-08 11:16 | WPDHPUPDATE1 ---
History and Physical Update Update Date/Time: 10/08/24 11:16 History and Physical has been reviewed, including an updated exam of the patient. There are NO changes in the patient's condition. Risks, benefits, and alternatives have been discussed and questions answered. Patient agrees to proceed with procedure.
[2024-10-08] MEDS: KETOROLAC 15 MG/ML VIAL (*BKC) IV PUSH (11:38)
[2024-10-08] MEDS: ACETAMINOPHEN 500 MG TABLET 1000 MG PO (11:38)
--- NOTE | 2024-10-08 12:55 | P.PNAN_ITS ---
Anes - Initial Pre Proc Eval Procedure: Operation Date: 10/08/24 13:00 Proposed Procedures p Laparoscopic Cholecystectomy - Veronique Hoffman MD Date/Time: 10/08/24 12:55 Surgeon: Veronique Hoffman MD Pre Op Diagnosis: Cholecystitis with Cholelithiasis Patient Data Age: 54 Gender: F Height: 1.52 m Weight: 74.8 kg Last Vital Signs Temp 36.9 C 10/08/24 11:00 Pulse 99 10/08/24 11:00 Resp 16 10/08/24 11:00 BP 123/92 H 10/08/24 11:00 Pulse Ox 100 10/08/24 11:00 O2 Del Method Room Air 10/08/24 11:00 Allergies Allergy/AdvReac Type Severity Reaction Status Date / Time No Known Allergies Allergy Verified 10/08/24 11:32 Home Medications ?Medication ?Instructions ?Recorded ?Confirmed ?Type atorvastatin 80 mg tablet 80 mg PO HS 09/17/23 10/01/24 History lisinopril 5 mg tablet 5 mg PO DAILY 09/17/23 10/01/24 History nortriptyline 75 mg capsule 75 mg PO BID 10/30/23 10/01/24 History duloxetine 60 mg capsule,delayed 60 mg PO DAILY 12/11/23 10/01/24 History release budesonide-formoterol HFA 160 2 puff inhalation Q12H 08/27/24 10/01/24 History mcg-4.5 mcg/actuation aerosol inhaler (Symbicort) cholecalciferol (vitamin D3) 250 250 mcg PO DAILY 08/27/24 10/01/24 History mcg (10,000 unit) capsule vitamin K2 100 mcg capsule 200 mcg PO DAILY 08/27/24 10/01/24 History aspirin 81 mg chewable tablet 81 mg PO DAILY 09/09/24 10/01/24 History albuterol sulfate 90 mcg/actuation 2 inh inhalation Q6-8H 10/01/24 10/01/24 History aerosol inhaler omeprazole 40 mg capsule,delayed 40 mg PO BID 10/01/24 10/01/24 History release Patient hx anesthesia problems: none Family hx anesthesia problems: none Results Review: All pre-operative results and documents have been reviewed as part of the pre- operative evaluation. [facility] Past Medical History Medical History CVA (cerebral vascular accident) Headache GERD (gastroesophageal reflux disease) Gallbladder disorder COPD (chronic obstructive pulmonary disease) Arthritis Anxiety Chronic, continuous use of opioids SLE (systemic lupus erythematosus related syndrome) Hyperlipidemia Chronic pain associated with significant psychosocial dysfunction Stroke HTN (hypertension) Family History Family History Father Acute myocardial infarction Leukemia Congestive heart failure Diabetes mellitus Grandparent Acute myocardial infarction Mother Congestive heart failure Cerebrovascular accident Hypertension Social History Social History Smoking packs per day: 0.50 Smoking cigarettes per day: 10.0 Years smoked: 38 Smoking pack-years: 19.00 Smoking status: Current every day smoker Tobacco type: cigarettes Second hand tobacco smoke exposure: Yes Additional smoking assessment comments: Now down to 8 cigs a day but was up to 1 1/2 pk day till few years ago Alcohol intake: never Substance use: current Substance use type: marijuana Other substance usage details: smokes it few times a day Do You Feel Safe in your Home?: Yes Lack of Transportation: No Lack of Food: Never True Current Housing: I Have Housing Concerned About Future Housing: No Difficulty Paying Gas/Electric Bills: YES Difficulty Paying for Meds: YES Currently Unemployed: No Education: Trade/Vocational Certificate Difficulty w/ Childcare or Family Care: No Living arrangements: with family Additional living arrangements comments: Occupation/Education: other Additional occupation/education comments: Disabled Spiritual care concerns: No Agree to blood products: Yes Anes - Eval Final PreProcedure Day of Procedure 10/08/24 12:55 Patient weight: obese Heart: regular rate and rhythm Lungs: decreased breath sounds Airway: Mallampati scale Neurological: alert and oriented Last oral intake: >/= 8 hours ASA classification: III Emergent: no Anesthetic plan: proceed Anesthesia type and monitoring: general ETT and standard monitoring Results Review: All pre-operative results and documents have been reviewed as part of the pre- operative evaluation. Informed Consent: The patient's anesthetic plan and its attendant risks and benefits were discussed with the patient/family/POA. Questions were solicited and answers provided to the satisfaction of the patient/family/POA.
[2024-10-08] MEDS: ceFAZolin 2 GM/D5W 50 ML 2 GM/50 ML BAG IVPB (13:32)
--- NOTE | 2024-10-08 13:40 | S_PTH ---
PATIENT: Fariba Lester LOC: [facility] U#:[id number] AGE/SX: 54/F ROOM: RE10/08/[address]: Veronique Hoffman MD : 1970 BED: DIS: 10/08/2024 SPEC #: [id number] RECD: 10/09/24 08:55 STATUS: LEIDA REQ #: [id number] CARIN: 10/08/24 13:[address]: Veronique Hoffman DEPT: [facility] Surgical RECD BY: Naomi Killian ENTERED: 10/09/24 08:56 SP TYPE: Surgical OTHR DR: Chantal Huff, [employer] Tissues: A - Gallbladder Procedures: Hematoxylin and Eosin Stain Gross and Microscopic Level 3
[2024-10-08] MEDS: BUPIVACAINE/EPINEPHRINE 0.5% 50 ML VIAL 30 ML INFILTRATE (13:46)
[2024-10-08] MEDS: LACTATED RINGERS 1,000 ML 30 ML IV CONT ×2 (14:48)
--- NOTE | 2024-10-08 14:51 | P.OP_ITS ---
Procedure Note - Detailed Date of Procedure 10/08/24 Pre-op Diagnosis Cholecystitis with Cholelithiasis Post-op Diagnosis Other (Acute gangrenous cholecystitis, hydrops cholecystitis) Procedure Performed laparoscopic cholecystectomy with extensive lysis of adhesions Surgeon Veronique Hoffman MD Anesthesia General and Local Indications 54-year-old female presenting cholecystitis, cholelithiasis. Patient postprandial epigastric pain associated with nausea, vomiting, bloating. Workup, including imaging, significant for cholecystitis, cholelithiasis. Findings Acute gangrenous cholecystitis with hydrops cholecystitis, stone noted at the neck of the gallbladder, extensive adhesions to the abdominal midline Description of Procedure The patient is taken the operating room and placed in supine position. After adequate induction of general anesthesia, the patient prepped and draped in the normal sterile fashion. Time-out was then done to verify the patient's identity, as well as procedure being performed. I began by making 5 mm incision in the infraumbilical region. A Veress needle was placed in the peritoneal cavity and CO2 gas was then insufflated. After adequate pneumoperitoneum was achieved, the Veress needle was removed and a 5 mm Optiview trocar was placed under direct visualization. I then placed the laparoscopic through this trocar site and there was noted to be dense adhesions around the trocar site. Given these findings, a 5 mm Optiview trocar was placed under direct visualization in the right lower abdomen. I then placed a laparoscopic through this trocar site and noted to be dense adhesions to the midline. The decision was made to place a 5 mm right mid abdominal port and an additional 5 mm right lower mid abdominal port. I then placed a 12 mm port in the subxiphoid region. I was then able to identify the gallbladder. The gallbladder was noted to be very inflamed and distended. There was some noted areas ischemia in the anterior gallbladder wall. Given the amount distention, the gallbladder was decompressed and hydrops cholecystitis was noted at this point. After decompression, I was able to place a grasper at the dome of the gallbladder. This was retracted anterior and cephalad up over the liver. A 2nd retractor was placed at infundibulum and retracted laterally. At this point, there was noted to be a stone impacted near the neck of the gallbladder. Using very careful dissection, was able to identify all elements the triangle of Calot. First identify the cystic duct. The cystic was noted in its entirety from its proximal insertion into the g allbladder to its distal junction with the common hepatic/common bile duct junction. At this point the proximal cystic duct was clipped and transected. Next I identified the cystic artery. The cystic artery was then clipped and transected. I then used the Bovie cautery take down the peritoneal attachments of the gallbladder off the liver. This was difficult given the amount of inflammation and necrosis of the gallbladder wall. Once the specimen was completely detached, the Endo pouch was placed through the 12 mm port site. The gallbladder specimen was placed into the Endo pouch and removed through the 12 mm port site. It will now be sent to pathology for further review. I then copiously irrigated the right upper quadrant. He hemostasis was noted in the liver bed. The clips were noted to be in good position on both the duct and the artery. I then closed the 12 mm port site under direct visualization using a Kunal cone and 0 Vicryl suture. The abdomen was then desufflated and all ports were removed. All port sites were then closed with 4-0 Monocryl subcuticular suture. Dermabond was placed on all wounds. The patient tolerated the procedure well and was extubated postoperatively. She will be transferred to the recovery room in stable condition. Estimated Blood Loss 10 Pathology Yes Complications No immediate complications Condition Stable Disposition PACU [facility] Billing Surgery - Charge Forward: Surgery Billing
[2024-10-08] MEDS: fentaNYL CITRATE INJ (*CRX) 100 MCG/2 ML VIAL 25 MCG IV PUSH ×4 (15:54→16:07)
[2024-10-08] MEDS: ONDANSETRON INJ 4 MG/2 ML VIAL IV PUSH (16:14)
[2024-10-08] MEDS: oxyCODONE HCL (*CRX) 5 MG TAB IR PO (16:30)
== END 2024-10-08 17:08 | disposition home or self-care (01) ==
PROVIDERS: PCP Nurse Practitioner Family; Visit Provider Surgery
PROC: 0FT44ZZ Resection of Gallbladder, Percutaneous Endoscopic Approach (ICD-10-PCS; CPT 47562; principal; 2024-10-08 13:00)
DX: K80.10 Calculus of gallbladder with chronic cholecystitis without obstruction (principal); K66.0 Peritoneal adhesions (postprocedural) (postinfection); F17.210 Nicotine dependence, cigarettes, uncomplicated; F12.90 Cannabis use, unspecified, uncomplicated; E66.9 Obesity, unspecified; Z68.32 Body mass index [BMI] 32.0-32.9, adult
CPT/HCPCS: 47562; 88304; A9270; J0690; J1100; J1885; J2003; J2405; J2704; J3010; J7030; J7120